=== PATIENT | female | born 1945 | race Caucasian/White ===

== ENCOUNTER 2017-07-06 14:41 | Emergency (ER) | payer MEDICARE, OTHER ==
[2017-07-06] MEDS ORDERED: LIDOCAINE VIS-MYLANTA 30 ML UD PO ONE (15:03)
--- NOTE | 2017-07-06 15:22 | RAD ---
EXAM DESCRIPTION: Chest,2 Views CLINICAL HISTORY: 72-year-old, female, chest pain. COMPARISON: None available. Findings/impression: Frontal and lateral views of the chest. Cardiac silhouette and pulmonary vascularity are within normal limits. Calcific atherosclerosis noted of the aortic arch. Subtle linear opacity within the left lung base, most likely atelectasis. Underlying infiltrate cannot be entirely excluded, although felt much less likely. No pleural effusion. No pneumothorax. Left shoulder arthroplasty. Electronically signed by: Stan Campos MD 07/06/2017 3:21 PM CDT
[2017-07-06 15:31] VITALS: O2SAT 98
[2017-07-06] MEDS ORDERED: SUCRALFATE 1 GM/10 ML 1 GM UD PO ONE (16:27)
--- NOTE | 2017-07-06 18:20 | ED.PDOC ---
History of Present Illness - General Chief Complaint: Chest Pain/VA Stated Complaint: Epigastric/low chest discomfort Time Seen by Provider: 07/06/17 15:01 Source: patient Exam Limitations: no limitations - History of Present Illness Initial Comments: The patient is a 72-year-old female presenting to the emergency room secondary to several hours of intermittent chest discomfort this morning. Chest discomfort is atypical. She has not had this sensation before. She was not doing anything really active when it started. The chest pain last 5-6 seconds when it comes on. It does not seem to be related to position. It starts at the lower sternal edge and proceed centrally upher neck towards the back of her throat. She does get a little bit of nausea with it. It is a tightening sensation. There is nothing that she can do to either start it or stop it. It does not necessarily cause shortness of breath. She has had a history of reflux in the past. No palpitations. No syncope or near syncope. She had been getting approximately 10-15 episodes since it started. She did have several episodes while I was talking with her. There is been nochange on telemetry monitoring. Her oxygen saturations have not changed. She does not become diaphoretic. The GI cocktail given to her did not stop the sensation but did significantly reduce the strength of the sensation immediately. Timing/Duration: 1-3 hours Severity: mild Improving Factors: nothing Worsening Factors: nothing Associated Symptoms: chest pain Allergies/Adverse Reactions: Allergies NO KNOWN ALLERGY Allergy (Verified 07/06/17 17:08) Home Medications: Ambulatory Orders Amlodipine Besylate-Benazepril [Lotrel] 1 cap PO DAILY #0 02/16/13 Calcium Carbonate-Cholecalcife [Calcium + D3 600-200 mg-Unit] 1 tab PO DAILY #0 02/16/13 Carvedilol [Coreg] 6.25 mg PO BID #0 02/16/13 Cholecalciferol [Vitamin D] 2,000 unit PO DAILY #0 02/16/13 Coenzyme Q10 (Ubidecarenone) [Co Q-10] 200 mg PO DAILY #0 02/16/13 Multiple Vitamin [Multi-Vitamin] 1 tab PO DAILY #0 02/16/13 Niacin [Niacin Tr] 1,000 mg PO DAILY #0 02/16/13 Simvastatin [Zocor] 20 mg PO DAILY #0 02/16/13 Famotidine 20 mg PO DAILY #30 tab 07/06/17 Progesterone Micronized [Progesterone] 200 mg PO DAILY 07/06/17 Ropinirole Hydrochloride [Ropinirole ER] 3 mg PO BID 07/06/17 Sucralfate Tab [Carafate Tab] 1 gm PO QID #60 tab 07/06/17 Review of Systems - Review of Systems Constitutional: States: no symptoms reported EENTM: States: no symptoms reported Respiratory: States: no symptoms reported Cardiology: States: chest pain Gastrointestinal/Abdominal: States: no symptoms reported Genitourinary: States: no symptoms reported Musculoskeletal: States: no symptoms reported Skin: States: no symptoms reported Neurological: States: no symptoms reported Endocrine: States: no symptoms reported All other Systems: No Change from Baseline Past Medical History (General) - Patient Medical History Hx Seizures: No Hx Stroke: No Hx Asthma: No Hx of COPD: No Hx Cardiac Disorders: Yes - hypercholesterolemia Hx Congestive Heart Failure: No Hx Pacemaker: No Hx Hypertension: Yes Hx Diabetes: No Hx Cancer: No Hx of HIV: No Hx Hepatitis C: No Hx MRSA: No Surgical History: Hysterectomy, other - Vaccination History Hx Tetanus, Diphtheria Vaccination: Yes - 2012 Hx Influenza Vaccination: Yes - 2015 Hx Pneumococcal Vaccination: Yes - 2007 Immunizations Comment: Prevaner 07/2015; Shingles 04/2014 - Social History Hx Tobacco Use: No Hx Alcohol Use: No Hx Substance Use: No Hx Substance Use Treatment: No Hx Depression: No Hx Physical Abuse: No Hx Emotional Abuse: No - Female History Patient is a Female of Child Bearing Age (10 -59 yrs old): No Family Medical History - Family History Mother Family History: Unknown Living Status: Physical Exam - Physical Exam General Appearance: Alert, Comfortable, No apparent distress Eye Exam: bilateral normal Ears, Nose, Throat: hearing grossly normal, normal ENT inspection, normal pharynx Neck: full range of motion, supple Respiratory: chest non-tender, lungs clear, normal breath sounds, no respiratory distress, no accessory muscle use Cardiovascular/Chest: normal peripheral pulses, regular rate, rhythm, no edema Peripheral Pulses: radial,right: 2+, radial,left: 2+, dorsalis pedis,right: 2+, dorsalis pedis,left: 2+ Gastrointestinal/Abdominal: non tender, soft Rectal Exam: deferred Back Exam: normal inspection, no CVA tenderness Extremity: normal range of motion, non-tender, normal inspection, no pedal edema , normal capillary refill Neurologic: skin drier II-XII nml as tested, no motor/sensory deficits, alert, normal mood/affect, oriented x 3 Skin Exam: normal color Comments: Vital Signs - 24 hr 07/06/17 07/06/17 07/06/17 14:48 15:30 16:28 Temperature 97.6 F Pulse Rate [ 73 73 63 apical] Respiratory 16 18 18 Rate Blood Pressure 157/96 134/77 154/66 [right brachial ] O2 Sat by Pulse 98 98 98 Oximetry Progress - Progress Progress: 07/06/17 18:21 the patient is a 72-year-old female presenting to the emergency room with atypical chest pain. 2 sets of cardiac enzymes are negative. The patient' s symptoms and response to the GI cocktail are consistent with esophageal motility disorder. We are going to treat the patient with acid reducing medications with the intention of reducing any esophageal irritation that may be triggering this. The patient was placed on Carafate for 2 weeks along with Pepcid for the next month. dietary precautions have been given to the patient. She has agreed to comply. ER warnings were given. She should follow-up with her primary care doctor next week for reevaluation. - Results/Orders Results/Orders: 07/06/17 15:02 Telemetry .CONTINUOUS 07/06/17 15:15 EKG STAT showed normal sinus rhythm at a rate of 81 bpm. Normal axis. Normal R -wave progression. No acute ST segment changes concerning for ischemia. Normal QT interval. Laboratory Results - last 24 hr 07/06/17 07/06/17 07/06/17 14:20 14:20 14:20 WBC 10.3 RBC 4.67 Hgb 11.8 L Hct 36.9 MCV 79.2 L MCH 25.2 L MCHC 31.9 L RDW 15.6 H Plt Count 359 MPV 7.7 Absolute Neuts (auto) 6.70 Absolute Lymphs (auto) 1.90 Absolute Monos (auto) 1.10 H Absolute Eos (auto) 0.40 Absolute Basos (auto) 0.10 Neutrophils % 65.2 Lymphocytes % 18.8 L Monocytes % 11.1 H Eosinophils % 3.8 Basophils % 1.1 PT 10.8 INR 0.960 PTT (SP) 29.6 D-Dimer, Quantitative 297 H* Sodium 139 Potassium 3.7 Chloride 104 Carbon Dioxide 28 Anion Gap 10.7 L BUN 17 Creatinine 0.72 BUN/Creatinine Ratio 23.6 H Random Glucose 93 Serum Osmolality 278.8 Calcium 10.2 Magnesium 2.3 Total Bilirubin 0.6 AST 19 ALT 15 Alkaline Phosphatase 57 Creatine Kinase 94 CK-MB (CK-2) 2.3 CK-MB (CK-2) % Not Reportable Troponin I < 0.02 B-Natriuretic Peptide 103.0 H Serum Total Protein 7.6 Albumin 4.2 Globulin 3.4 Albumin/Globulin Ratio 1.2 TSH 1.89 07/06/17 17:35 WBC RBC Hgb Hct MCV MCH MCHC RDW Plt Count MPV Absolute Neuts (auto) Absolute Lymphs (auto) Absolute Monos (auto) Absolute Eos (auto) Absolute Basos (auto) Neutrophils % Lymphocytes % Monocytes % Eosinophils % Basophils % PT INR PTT (SP) D-Dimer, Quantitative Sodium Potassium Chloride Carbon Dioxide Anion Gap BUN Creatinine BUN/Creatinine Ratio Random Glucose Serum Osmolality Calcium Magnesium Total Bilirubin AST ALT Alkaline Phosphatase Creatine Kinase 85 CK-MB (CK-2) 2.1 CK-MB (CK-2) % Not Reportable Troponin I < 0.02 B-Natriuretic Peptide Serum Total Protein Albumin Globulin Albumin/Globulin Ratio TSH chest x-ray shows no acute pathology. Departure - Departure Clinical Impression: Chest pain, atypical Disposition: Discharge to Home or Self Care Departure Forms: ED Discharge - Pt. Copy, Patient Portal Self Enrollment Instructions: DI for Esophagitis, DI for Atypical Chest Pain Diet: bland diet Activity: increase activity as tolerated Referrals: Isis Locke MD [Primary Care Provider] - 1-2 Weeks Prescriptions: Famotidine 20 mg PO DAILY #30 tab Sucralfate Tab [Carafate Tab] 1 gm PO QID #60 tab Home Medications: Ambulatory Orders Amlodipine Besylate-Benazepril [Lotrel] 1 cap PO DAILY #0 02/16/13 Calcium Carbonate-Cholecalcife [Calcium + D3 600-200 mg-Unit] 1 tab PO DAILY #0 02/16/13 Carvedilol [Coreg] 6.25 mg PO BID #0 02/16/13 Cholecalciferol [Vitamin D] 2,000 unit PO DAILY #0 02/16/13 Coenzyme Q10 (Ubidecarenone) [Co Q-10] 200 mg PO DAILY #0 02/16/13 Multiple Vitamin [Multi-Vitamin] 1 tab PO DAILY #0 02/16/13 Niacin [Niacin Tr] 1,000 mg PO DAILY #0 02/16/13 Simvastatin [Zocor] 20 mg PO DAILY #0 02/16/13 Famotidine 20 mg PO DAILY #30 tab 07/06/17 Progesterone Micronized [Progesterone] 200 mg PO DAILY 07/06/17 Ropinirole Hydrochloride [Ropinirole ER] 3 mg PO BID 07/06/17 Sucralfate Tab [Carafate Tab] 1 gm PO QID #60 tab 07/06/17 Additional Instructions: the patient is a 72-year-old female presenting to the emergency room with atypical chest pain. 2 sets of cardiac enzymes are negative. The patient' s symptoms and response to the GI cocktail are consistent with esophageal motility disorder. We are going to treat the patient with acid reducing medications with the intention of reducing any esophageal irritation that may be triggering this. The patient was placed on Carafate for 2 weeks along with Pepcid for the next month. dietary precautions have been given to the patient. She has agreed to comply. ER warnings were given. She should follow-up with her primary care doctor next week for reevaluation.
[2017-07-06 18:34] VITALS: BP 140/88; TEMP 97.9
== END 2017-07-06 18:30 | disposition home or self-care (01) ==
LOC: ER 14:41
DX: R07.89 Other chest pain (principal); E78.00 Pure hypercholesterolemia, unspecified; I10 Essential (primary) hypertension; Z79.899 Other long term (current) drug therapy

== ENCOUNTER → 2017-07-31 | Outpatient (CLI) | payer MEDICARE, OTHER ==
--- NOTE | 2017-07-31 09:35 | RAD ---
EXAM DESCRIPTION: Ankle,Left 3 Views CLINICAL HISTORY: 72 years Female, PAIN COMPARISON: None. FINDINGS: 3 views of the left ankle show lateral soft tissue swelling. There is a small bone fragment along the lateral aspect of the ankle suspicious for a small avulsion type fracture likely arising from the calcaneus. No additional fracture or malalignment is seen. The tibiotalar joint space and talar dome are well-maintained. The base of the fifth metatarsal is intact. There is a small plantar calcaneal enthesophyte. IMPRESSION: Small avulsion fracture arising from the lateral aspect of the calcaneus with overlying soft tissue swelling. Otherwise unremarkable exam. Electronically signed by: Pantera Najera MD 07/31/2017 9:34 AM [facility]
== END | disposition home or self-care (01) ==
LOC: RAD 08:44
PROVIDERS: ATTEND Orthopaedic Surgery
DX: M25.572 Pain in left ankle and joints of left foot (principal)

== ENCOUNTER → 2017-10-09 | Outpatient (CLI) | payer MEDICARE, OTHER ==
--- NOTE | 2017-10-09 15:32 | CT ---
EXAM DESCRIPTION: Abdomen/Pelvis w/Contrast: CT. CLINICAL HISTORY: INTESTINAL OBSTRUCTION COMPARISON: None. TECHNIQUE: Spiral-axial scans at 5.0 mm intervals through the abdomen and pelvis, after nonionic IV contrast. No oral contrast. Axial 2.5 mm reconstructions. Coronal and sagittal 2.0 mm reconstructions. Delayed scans, liver through the pelvis. Axial-spiral 5mm. No adverse reactions. Total Exam DLP: 1178.69 mGy-cm. This exam was performed according to our departmental dose-optimization program which includes automated exposure control, adjustment of the mA and/or kV according to patient size and/or use of iterative reconstruction technique; to reduce radiation dose to as low as reasonably achievable (ALARA). FINDINGS: Lung bases and pleura: Minimal scarring in the left base. Liver, Stomach, Spleen, Adrenal Glands: Calcification in the inferior right liver. Subcapsular cyst lateral right upper lobe. Small calcifications in the spleen.. Pancreas, Gallbladder, Ducts: Minimally dense small stones or sludge in the neck of the gallbladder Kidneys and Ureters: Cyst in the superior lateral cortex of the left kidney small noncalcified septation inferiorly. Otherwise unremarkable. Right kidney and ureter negative. Mesentery: Negative. No free air or free fluid. Aorta: Atherosclerotic calcification more dense inferiorly with narrowing of the lumen. Calcification proximal common iliac vessels. Calcification of the ostia of the major vessels originating from the aorta. Small Bowel: Minimal fluid and gas with no distention. Fecalization of the distal ileum. Terminal Ileum/Cecum: Unremarkable. Normal caliber of the appendix. Normal surrounding fat. Colon: Diverticula in the sigmoid colon with minimal redundancy. No complications. Pelvic Organs: No fluid in the cul-de-sac. Vaginal cuff is unremarkable. No soft tissue masses in the pelvic cavity. Spine and Bony Pelvis: Spondylosis L5-S1 with degenerated bulging disc. Spondylosis space loss and endplate changes at L1-L2. Normal bone density. Abdominal Wall/Back Soft Tissues: Edema in the subcutaneous tissues around the vulva predominantly on the right extending through the pubic symphysis. No definite fluid collection. IMPRESSION: 1. Small stones or sludge in the dependent portion of the gallbladder. No wall thickening. Consider right upper quadrant abdominal ultrasound if clinically indicated. 2. Small left renal cortical cyst with thin noncalcified septa, nonenhancing. No further imaging needed. 3. Diverticulosis sigmoid colon with no evidence of complications. No bowel obstruction. 4. No enlarged abdominal organs. No free air. No ascites or fluid in the cul-de-sac. Diffuse atherosclerotic calcification of the abdominal aorta with luminal narrowing distally. 5. Inflammatory process in the right vulva but no definite abscess. This extends superiorly to the level of the anterior pubic symphysis Electronically signed by: Jonathan Iniguez MD 10/09/2017 3:31 PM [employer]
== END | disposition home or self-care (01) ==
LOC: CT 09:00
PROVIDERS: ATTEND Internal Medicine Gastroenterology
DX: R19.4 Change in bowel habit (principal)

== ENCOUNTER → 2017-10-31 | Outpatient (CLI) | payer MEDICARE, OTHER | LOC: SL 10:30 | PROVIDERS: ATTEND Family Medicine | DX: G47.10 Hypersomnia, unspecified (principal); G47.00 Insomnia, unspecified; R06.83 Snoring ==

== ENCOUNTER → 2017-12-04 | Outpatient (CLI) | payer MEDICARE, OTHER | LOC: SL 23:22 | PROVIDERS: ATTEND Family Medicine | DX: G47.10 Hypersomnia, unspecified (principal); G47.00 Insomnia, unspecified; R06.83 Snoring ==

== ENCOUNTER → 2017-12-26 | Outpatient (CLI) | payer MEDICARE, OTHER ==
--- NOTE | 2017-12-26 09:56 | RAD ---
EXAM DESCRIPTION: Shoulder,Right 2 or More Views CLINICAL HISTORY: SHOULDER PAIN COMPARISON: None Available. TECHNIQUE: 4 views of the right shoulder. FINDINGS: There is adequate internal and external rotation. Normal alignment on transscapular Y view and transaxillary view There is no fracture or dislocation. Mild degenerative spurring at the AC joint. Acromiohumeral distance measures 1.1 cm which is normal.There are no significant degenerative changes observed. No focal bone lesion. IMPRESSION: Negative for fracture or dislocation. Electronically signed by: Thomas Tinsley MD 12/26/2017 9:54 AM CDT
== END | disposition home or self-care (01) ==
LOC: RAD 07:41
PROVIDERS: ATTEND Orthopaedic Surgery
DX: M25.511 Pain in right shoulder (principal)

== ENCOUNTER → 2017-12-28 | Outpatient (CLI) | payer MEDICARE, OTHER ==
--- NOTE | 2017-12-28 12:23 | MRI ---
MRI right shoulder without contrast INDICATION: Shoulder pain limited range of motion rotator cuff syndrome TECHNIQUE: Noncontrast MR imaging right shoulder standard protocol FINDINGS: Moderate to severe hypertrophic AC joint osteoarthrosis. There is an effectively full-thickness tear of the insertional supraspinatus. Retraction measures approximately 9 mm. Fairly severe subacromial and subdeltoid bursitis. No advanced glenohumeral arthrosis. There is interstitial delamination into the infraspinatus. Grade 1 fatty streaking of the rotator cuff muscle bellies diffusely. No end-stage asymmetric atrophy. Mild tendinopathy subscapularis. Possible small focus of hydroxyapatite deposition on axial series 301 image 9 lateral margin bicipital groove but no active inflammation. IMPRESSION: Full-thickness mildly retracted tear supraspinatus tendon with interstitial delamination into the infraspinatus Severe subacromial and subdeltoid bursitis Advanced AC joint osteoarthrosis Generalized grade 1 fatty atrophy of the rotator cuff muscle bellies Electronically signed by: Cm Suazo MD 12/28/2017 12:22 PM CDT
== END | disposition home or self-care (01) ==
LOC: MRI 10:00
PROVIDERS: ATTEND Orthopaedic Surgery
DX: M75.101 Unspecified rotator cuff tear or rupture of right shoulder, not specified as traumatic (principal)

== ENCOUNTER 2018-03-30 22:27 | Emergency (ER) | payer MEDICARE, OTHER ==
--- NOTE | 2018-03-31 00:12 | ED.PDOC ---
History of Present Illness - General Chief Complaint: Abdominal Pain Stated Complaint: Abdominal pain Time Seen by Provider: 03/30/18 23:25 Information Source: patient Exam Limitations: no limitations - History of Present Illness Initial Comments: Azra Bunch 73 y/o female stated that she had on and off achy pain on her abdomen for the last 1 1/2 years and had seen GI specialist for this problem stated that she might have intermittent bowel obstruction.Had numerous work up done with colonoscopy,EGD,gi vdeocam and unable to pinpoint the cause of her chronic abdominal pains.But this afternoon the intensity got worse getting more frequent no nausea/vomiting,able to eat lunch then afterwards had onset of symptoms after eating had 2 bowel movements today am and at 1730 H. Abdominal Pain Onset Location: other - mid abdomen Pain Radiation: no radiation Quality: aching Timing/Duration: 7-24 hours Improving Factors: nothing Worsening Factors: eating Associated Symptoms: denies symptoms Review of Systems - Review of Systems Constitutional: States: no symptoms reported EENTM: States: no symptoms reported Respiratory: States: no symptoms reported Cardiology: States: no symptoms reported Gastrointestinal/Abdominal: States: see HPI Genitourinary: States: no symptoms reported Musculoskeletal: States: no symptoms reported Skin: States: no symptoms reported Neurological: States: no symptoms reported All other Systems: Reviewed and Negative, No Change from Baseline Past Medical History (General) - Patient Medical History Hx Seizures: No Hx Stroke: No Hx Asthma: No Hx of COPD: No Hx Cardiac Disorders: Yes - hypercholesterolemia, A-fib Hx Congestive Heart Failure: No Hx Pacemaker: No Hx Hypertension: Yes Hx Diabetes: No Hx Cancer: No Hx of HIV: No Hx Hepatitis C: No Hx MRSA: No Surgical History: other - hysterectomy - Vaccination History Hx Tetanus, Diphtheria Vaccination: Yes Hx Influenza Vaccination: Yes Hx Pneumococcal Vaccination: Yes Immunizations Up to Date: Yes - Social History Hx Tobacco Use: No Hx Alcohol Use: No Hx Substance Use: No Hx Substance Use Treatment: No Hx Depression: No Hx Physical Abuse: No Hx Emotional Abuse: No - Female History Patient : No Family Medical History - Family History Mother Family History: Unknown Living Status: Hx Cardiac Disease: Yes - parents mi-in their late 50's Hx Family Cancer: Yes - ovarian/colon-half sister Physical Exam - Physical Exam General Appearance: Alert, Comfortable, No apparent distress Eyes, Ears, Nose, Throat Exam: PERRL/EOMI, normal ENT inspection, pharynx normal Neck: non-tender, full range of motion, supple, normal inspection Respiratory: chest non-tender, lungs clear, normal breath sounds, no respiratory distress Cardiovascular/Chest: normal peripheral pulses, irregularly irregular - HR-92 Peripheral Pulses: No deficit Gastrointestinal/Abdominal: soft, no organomegaly, tenderness - mid abdomen; positive direct tenderness,no rebound Back Exam: no CVA tenderness, no vertebral tenderness Extremity: non-tender, no pedal edema, no calf tenderness Skin Exam: normal color, warm/dry Lymphatic: no adenopathy Progress - Progress Progress: 03/31/18 00:27 Vital Signs 03/30/18 23:19 Temperature 98.5 F Pulse Rate [ 88 left radial] Respiratory 20 Rate Blood Pressure 165/76 [Left Arm] O2 Sat by Pulse 97 Oximetry - Results/Orders Results/Orders: 03/30/18 23:25 IV Care:Saline Lock per Protoc QSHIFT 03/31/18 00:30 Hold Metformin x 48Hrs [id number] Laboratory Results - last 24 hr 03/30/18 03/30/18 03/30/18 23:15 23:15 23:30 WBC 11.7 H RBC 4.95 Hgb 14.9 Hct 44.8 MCV 90.5 MCH 30.1 MCHC 33.2 RDW 13.9 Plt Count 273 MPV 7.8 Absolute Neuts (auto) 9.50 H Absolute Lymphs (auto) 1.00 Absolute Monos (auto) 0.90 H Absolute Eos (auto) 0.30 Absolute Basos (auto) 0.00 Neutrophils % 80.8 H Lymphocytes % 8.1 L Monocytes % 8.1 Eosinophils % 2.6 Basophils % 0.4 Sodium 138 Potassium 3.7 Chloride 103 Carbon Dioxide 26 Anion Gap 12.7 BUN 20 H Creatinine 0.91 BUN/Creatinine Ratio 22.0 H Random Glucose 120 H Serum Osmolality 279.5 Lactic Acid Calcium 9.6 Total Bilirubin 1.0 AST 24 ALT 21 Alkaline Phosphatase 60 Serum Total Protein 7.0 Albumin 4.3 Globulin 2.7 Albumin/Globulin Ratio 1.6 Lipase 19 L Urine Color Urine Appearance Urine pH Ur Specific [place] Urine Protein Urine Glucose (UA) Urine Ketones Urine Blood Urine Nitrite Urine Bilirubin Urine Urobilinogen Ur Leukocyte Esterase Urine RBC Urine WBC Ur Epithelial Cells Urine Bacteria Urine Mucus 07/06/18 07/07/18 23:30 00:39 WBC RBC Hgb Hct MCV MCH MCHC RDW Plt Count MPV Absolute Neuts (auto) Absolute Lymphs (auto) Absolute Monos (auto) Absolute Eos (auto) Absolute Basos (auto) Neutrophils % Lymphocytes % Monocytes % Eosinophils % Basophils % Sodium Potassium Chloride Carbon Dioxide Anion Gap BUN Creatinine BUN/Creatinine Ratio Random Glucose Serum Osmolality Lactic Acid 1.7 Calcium Total Bilirubin AST ALT Alkaline Phosphatase Serum Total Protein Albumin Globulin Albumin/Globulin Ratio Lipase Urine Color Yellow Urine Appearance Clear Urine pH 6.5 Ur Specific [place] 1.025 Urine Protein Negative Urine Glucose (UA) Negative Urine Ketones Negative Urine Blood Negative Urine Nitrite Negative Urine Bilirubin Negative Urine Urobilinogen 0.2 Ur Leukocyte Esterase Negative Urine RBC 0 Urine WBC 0-1 Ur Epithelial Cells 0-1 Urine Bacteria 1+ Urine Mucus Trace - EKG/XRAY/CT CT Ordered: Yes - abd/pelvis-small bowel obstruction transition mid abd. Departure - Departure Clinical Impression: Small bowel obstruction due to adhesions Abdominal pain Qualifiers: Abdominal location: unspecified location Qualified Code(s): R10.9 - Unspecified abdominal pain Time of Disposition: 03:28 Disposition: Transfer to Hospital Departure Forms: Patient Portal Self Enrollment Referrals: Aurelio Voss MD [Primary Care Provider] - 1-2 Weeks Home Medications: Ambulatory Orders Amlodipine Besylate-Benazepril [Lotrel] 1 cap PO DAILY #0 02/16/13 Calcium Carbonate-Cholecalcife [Calcium + D3 600-200 mg-Unit] 1 tab PO DAILY #0 02/16/13 Carvedilol [Coreg] 6.25 mg PO BID #0 02/16/13 Cholecalciferol [Vitamin D] 2,000 unit PO DAILY #0 02/16/13 Coenzyme Q10 (Ubidecarenone) [Co Q-10] 200 mg PO DAILY #0 02/16/13 Multiple Vitamin [Multi-Vitamin] 1 tab PO DAILY #0 02/16/13 Niacin [Niacin Tr] 1,000 mg PO DAILY #0 02/16/13 Simvastatin [Zocor] 20 mg PO DAILY #0 02/16/13 Famotidine 20 mg PO DAILY #30 tab 07/06/17 Progesterone Micronized [Progesterone] 200 mg PO DAILY 07/06/17 Ropinirole Hydrochloride [Ropinirole ER] 3 mg PO BID 07/06/17 Sucralfate Tab [Carafate Tab] 1 gm PO QID #60 tab 07/06/17 Transfer to Outside Facility - Transfer Information Accepting Provider:: -Hospitalist Accepting Facility: [facility] Reason for Transfer: required specialist not available
[2018-03-31] MEDS ORDERED: MORPHINE SULFATE INJ 10 MG/ML VIAL IV ONE ×2 (00:13→02:37)
[2018-03-31] MEDS ORDERED: SODIUM CHLORIDE 0.9% 500ML 500 ML IVS ONE (00:13)
[2018-03-31] MEDS ORDERED: PROMETHAZINE HCL INJ 25 MG/ML VIAL IM ONE (00:13)
--- NOTE | 2018-03-31 01:14 | CT ---
CT ABDOMEN PELVIS WITH IV CONTRAST Exam date: March 31, 2018 Comparison: CT abdomen pelvis October 09, 2017 Indication: Abdominal pain Technique: Multiple helical axial images were obtained through the abdomen and pelvis using intravenous contrast. Sagittal and coronal reformatted images are reviewed as well. All CT scans at this facility use dose modulation, iterative reconstruction, and/or weight-based dosing when appropriate to reduce radiation dose to as low as reasonably achievable. Findings: Lung bases: [Appear unremarkable]. Liver: [A few subcentimeter hypodensities in the liver are again demonstrated too small to characterize but unchanged.] Gallbladder/biliary: [Appears unremarkable] Pancreas: [Unremarkable. No evidence of ductal enlargement.] Spleen: Appears unremarkable. No splenomegaly. Adrenals: Unremarkable. Kidneys and ureters: There is a 1.3 cm cyst in the midpole of the left kidney. [No evidence of hydronephrosis. Normal enhancement.] Bladder: Unremarkable. Pelvic organs: Post hysterectomy changes are present. Bowel: Several dilated small bowel loops are demonstrated in the lower midabdomen with air-fluid levels. There is an abrupt transition between dilated and decompressed small bowel in the lower mid abdomen (series 2, image 63) with decompressed small bowel distally compatible with small bowel obstruction. There is mild stranding of mesenteric fat near the dilated small bowel loops. Colonic diverticula are present. No obvious bowel wall thickening. Appendix appears unremarkable. Vasculature: Aortoiliac atherosclerosis is present. Peritoneum: No free air. No significant free fluid. Lymph nodes: Unremarkable. Soft tissues: Normal Bones: Degenerative changes of the lumbar spine are present. Impression: Findings compatible with small bowel obstruction with a transition point in the lower mid abdomen. Electronically signed by: Ra Mahan MD 03/31/2018 1:13 AM CDT
[2018-03-31] MEDS ORDERED: SODIUM CHLORIDE 0.9% 1000ML 1,000 ML IVS PRN (02:52)
--- NOTE | 2018-03-31 03:23 | RAD ---
EXAM DESCRIPTION: Abdomen 1 View (accession [id number]), Chest,1 View (accession [id number]) CLINICAL HISTORY: 73 years Female, post Ngt insertion COMPARISON: Chest two views July 06, 2017 FINDINGS: No pulmonary consolidation. No pneumothorax. No significant pleural effusion. Cardiomediastinal silhouette is unremarkable. Esophogastric tube is present with its tip at the gastroesophageal junction. Bowel gas pattern appears nonspecific with paucity of gas. Contrast is present in the bilateral renal collecting systems from a prior study. Left shoulder arthroplasty changes are noted. IMPRESSION: 1. No acute findings within the chest. 2. Esophogastric tube tip at the gastroesophageal junction. Electronically signed by: Ra Mahan MD 03/31/2018 3:22 AM CDT
--- NOTE | 2018-03-31 03:23 | RAD ---
EXAM DESCRIPTION: Abdomen 1 View (accession [id number]), Chest,1 View (accession [id number]) CLINICAL HISTORY: 73 years Female, post Ngt insertion COMPARISON: Chest two views July 06, 2017 FINDINGS: No pulmonary consolidation. No pneumothorax. No significant pleural effusion. Cardiomediastinal silhouette is unremarkable. Esophogastric tube is present with its tip at the gastroesophageal junction. Bowel gas pattern appears nonspecific with paucity of gas. Contrast is present in the bilateral renal collecting systems from a prior study. Left shoulder arthroplasty changes are noted. IMPRESSION: 1. No acute findings within the chest. 2. Esophogastric tube tip at the gastroesophageal junction. Electronically signed by: Ra Mahan MD 03/31/2018 3:22 AM CDT
[2018-03-31 03:38] VITALS: BP 141/74; TEMP 97.7; O2SAT 98
== END 2018-03-31 03:55 | disposition short-term general hospital (02) ==
LOC: ER 22:27
DX: K56.50 Intestinal adhesions [bands], unspecified as to partial versus complete obstruction (principal); I48.91 Unspecified atrial fibrillation; I10 Essential (primary) hypertension; E78.00 Pure hypercholesterolemia, unspecified; Z79.899 Other long term (current) drug therapy
CPT/HCPCS: 36415; 71045; 74018; 74177; 80053; 81001; 83605; 83690; 85025; J2270; J2550; J7030; J7040

== ENCOUNTER → 2018-04-11 | Outpatient (CLI) | payer MEDICARE, OTHER ==
--- NOTE | 2018-04-11 16:21 | RAD ---
EXAM DESCRIPTION: Knee,Right 2 or More Views CLINICAL HISTORY: 73 years, Female, PAIN IN RIGHT KNEE COMPARISON: None TECHNIQUE: Three views of the right knee FINDINGS: No fracture or dislocation. Bones appear normally mineralized with normal trabecular pattern. Narrowed appearance of medial and lateral compartments on frontal view with prominent medial and lateral joint line spurring and spurring of tibial spines. Lateral view shows normal position of the patella. Prominent posterior patellar spurring is seen inferiorly. Small to moderate suprapatellar knee joint effusion is present and there is edema at the lower pole of the patella.. Normal contour of quadriceps and patellar tendons. No abnormal patellar tilt or subluxation on patellar sunrise view. Mild posterolateral patellar spurring with medial femoral trochlear spurring. IMPRESSION: Degenerative changes as described. Electronically signed by: Thomas Tinsley MD 04/11/2018 4:20 PM CDT
--- NOTE | 2018-04-11 16:22 | RAD ---
EXAM DESCRIPTION: Pelvis CLINICAL HISTORY: 73 years Female, PAIN IN RIGHT HIP COMPARISON: None. FINDINGS: No pelvic fracture. No hip dislocation. Mild enthesopathy at the left greater trochanter. Question mild myositis ossificans beyond the left greater trochanter distally. IMPRESSION: Negative for fracture or dislocation. Electronically signed by: Thomas Tinsley MD 04/11/2018 4:21 PM CDT
== END ==
LOC: RAD 07:00
PROVIDERS: ATTEND Orthopaedic Surgery
DX: M25.561 Pain in right knee (principal); M25.551 Pain in right hip

== ENCOUNTER → 2018-04-16 | Outpatient (CLI) | payer MEDICARE, OTHER | LOC: GMAM 16:22 | PROVIDERS: ATTEND Family Medicine | DX: D50.8 Other iron deficiency anemias (principal) ==

== ENCOUNTER → 2018-09-11 | Outpatient (CLI) | payer MEDICARE, OTHER | LOC: GMAM 12:33 | PROVIDERS: ATTEND Family Medicine | DX: M25.50 Pain in unspecified joint (principal) ==

== ENCOUNTER 2018-11-10 14:50 | Emergency (ER) | payer MEDICARE, OTHER ==
[2018-11-10 15:16] VITALS: O2SAT 96
--- NOTE | 2018-11-10 15:20 | ED.PDOC ---
History of Present Illness - General Chief Complaint: General Stated Complaint: Right knee pain Time Seen by Provider: 11/10/18 15:20 Source: patient Exam Limitations: no limitations - History of Present Illness Initial Comments: Azra Mckeon 23 y/o female stated that he had sharp right knee pain which started this AM aggravated by walking and climbing.Has history of previous right knee pain in the past and had seen orthopedist Dr. Porter in March 2018 but mentioned no surgical intervention indicated at that time.Denies history of remote or recent injury to right knee.No fever,no sob,no recent surgeries. Timing/Duration: 4-6 hours Severity: moderate Improving Factors: nothing, rest Worsening Factors: movement Associated Symptoms: denies symptoms Allergies/Adverse Reactions: Allergies NO KNOWN ALLERGY Allergy (Verified 11/10/18 15:20) Home Medications: Ambulatory Orders Calcium Carbonate-Cholecalcife [Calcium + D3 600-200 mg-Unit] 1 tab PO DAILY #0 02/16/13 Carvedilol [Coreg] 6.25 mg PO BID #0 02/16/13 Cholecalciferol [Vitamin D] 2,000 unit PO DAILY #0 02/16/13 Coenzyme Q10 (Ubidecarenone) [Co Q-10] 200 mg PO DAILY #0 02/16/13 Multiple Vitamin [Multi-Vitamin] 1 tab PO DAILY #0 02/16/13 Simvastatin [Zocor] 20 mg PO DAILY #0 02/16/13 Progesterone Micronized [Progesterone] 200 mg PO DAILY 07/06/17 Ropinirole Hydrochloride [Ropinirole ER] 1 mg PO BID 07/06/17 Acetamin W/Cod #3 Tab [Tylenol w/CODEINE #3] 1 ea PO Q6HRS PRN #30 tab 11/10/18 Albuterol Sulfate [Ventolin Hfa] 108 mcg IN PRN PRN 11/10/18 Apixaban [Eliquis] 5 mg PO DAILY 11/10/18 Fluticasone Propionate (Nasal) [Flonase] 50 mcg ALEX PRN PRN 11/10/18 Furosemide [Lasix] 20 mg PO PRN PRN 11/10/18 Magnesium Oxide (mg Supplement [Magnesium Oxide] 400 mg PO DAILY 11/10/18 Potassium Chloride [Klor-Con Sprinkle] 8 meq PO PRN PRN 11/10/18 Sumatriptan Succinate [Imitrex] 100 mg PO PRN PRN 11/10/18 Valsartan 160 mg PO DAILY 11/10/18 Review of Systems - Review of Systems Constitutional: States: no symptoms reported EENTM: States: no symptoms reported Respiratory: States: no symptoms reported Gastrointestinal/Abdominal: States: no symptoms reported Genitourinary: States: no symptoms reported Musculoskeletal: States: see HPI All other Systems: Reviewed and Negative, No Change from Baseline Past Medical History (General) - Patient Medical History Hx Seizures: No Hx Stroke: No Hx Asthma: No Hx of COPD: No Hx Cardiac Disorders: Yes - hx of A-fib Hx Congestive Heart Failure: No Hx Pacemaker: No Hx Hypertension: Yes Hx Diabetes: No Hx Cancer: Yes - lymphoma 2008 (remission) Hx of HIV: No Hx Hepatitis C: No Hx MRSA: No Surgical History: other - Hysterectomy,left knee,left shoulder,CTS,finger - Vaccination History Hx Tetanus, Diphtheria Vaccination: No Hx Influenza Vaccination: Yes Hx Pneumococcal Vaccination: Yes Immunizations Up to Date: Yes - Social History Hx Tobacco Use: Yes Hx Alcohol Use: No Hx Substance Use: No Hx Substance Use Treatment: No Hx Depression: No Hx Physical Abuse: No Hx Emotional Abuse: No - Female History Patient is a Female of Child Bearing Age (10 -59 yrs old): No Patient : No Family Medical History - Family History Mother Family History: Unknown Living Status: Hx Cardiac Disease: Yes - parents mi-in their late 50's Hx Family Cancer: Yes - ovarian/colon-half sister Physical Exam - Physical Exam General Appearance: Alert, Comfortable, No apparent distress Eye Exam: bilateral normal Ears, Nose, Throat: hearing grossly normal, normal ENT inspection, normal pharynx Neck: supple, normal inspection Respiratory: chest non-tender, lungs clear, normal breath sounds Cardiovascular/Chest: normal peripheral pulses, regular rate, rhythm, no murmur Peripheral Pulses: radial,right: 2+, radial,left: 2+ Gastrointestinal/Abdominal: non tender, soft, no organomegaly Back Exam: no CVA tenderness, no vertebral tenderness Extremity: no pedal edema, no calf tenderness, other - rom slightly painful on flexion right knee,no swelling,no erythema Progress - Progress Progress: 11/10/18 15:44 Vital Signs - 8 hr 11/10/18 15:09 Temperature 97.6 F Pulse Rate [ 87 Left Radial] Respiratory 16 Rate Blood Pressure 179/83 [Left Arm] O2 Sat by Pulse 96 Oximetry - Results/Orders Results/Orders: Laboratory Results - last 24 hr 11/10/18 15:55 Uric Acid 6.7 Discuss test result ordered with patient wants to use her cane declined knee immobilizer.She will call up Dr. Porter-orthopedist 12 Nov 2018. Departure - Departure Clinical Impression: Right knee pain Qualifiers: Chronicity: acute Qualified Code(s): M25.561 - Pain in right knee Degenerative joint disease of knee, right Qualifiers: Osteoarthritis type: unspecified Qualified Code(s): M17.11 - Unilateral primary osteoarthritis, right knee Time of Disposition: 16:20 Disposition: Discharge to Home or Self Care Condition: Fair Departure Forms: ED Discharge - Pt. Copy, Patient Portal Self Enrollment Instructions: Knee Pain (DC), Knee Pain, Osteoarthritis (DC) Referrals: Aurelio Voss MD [Primary Care Provider] - 1-2 Weeks Prescriptions: Acetamin W/Cod #3 Tab [Tylenol w/CODEINE #3] 1 ea PO Q6HRS PRN #30 tab PRN Reason: Pain Home Medications: Ambulatory Orders Calcium Carbonate-Cholecalcife [Calcium + D3 600-200 mg-Unit] 1 tab PO DAILY #0 02/16/13 Carvedilol [Coreg] 6.25 mg PO BID #0 02/16/13 Cholecalciferol [Vitamin D] 2,000 unit PO DAILY #0 02/16/13 Coenzyme Q10 (Ubidecarenone) [Co Q-10] 200 mg PO DAILY #0 02/16/13 Multiple Vitamin [Multi-Vitamin] 1 tab PO DAILY #0 02/16/13 Simvastatin [Zocor] 20 mg PO DAILY #0 02/16/13 Progesterone Micronized [Progesterone] 200 mg PO DAILY 07/06/17 Ropinirole Hydrochloride [Ropinirole ER] 1 mg PO BID 07/06/17 Acetamin W/Cod #3 Tab [Tylenol w/CODEINE #3] 1 ea PO Q6HRS PRN #30 tab 11/10/18 Albuterol Sulfate [Ventolin Hfa] 108 mcg IN PRN PRN 11/10/18 Apixaban [Eliquis] 5 mg PO DAILY 11/10/18 Fluticasone Propionate (Nasal) [Flonase] 50 mcg ALEX PRN PRN 11/10/18 Furosemide [Lasix] 20 mg PO PRN PRN 11/10/18 Magnesium Oxide (mg Supplement [Magnesium Oxide] 400 mg PO DAILY 11/10/18 Potassium Chloride [Klor-Con Sprinkle] 8 meq PO PRN PRN 11/10/18 Sumatriptan Succinate [Imitrex] 100 mg PO PRN PRN 11/10/18 Valsartan 160 mg PO DAILY 11/10/18 Additional Instructions: Follow up with 12 Nov 2018;Return to ER as needed;Continue with all home medications
[2018-11-10] MEDS ORDERED: HYDROcodone 7.5MG/APAP 325MG 1 EA TAB PO ONE (15:50)
--- NOTE | 2018-11-10 16:02 | RAD ---
EXAM: Knee,Right 2 or More Views CLINICAL INDICATION: Right knee pain COMPARISON: 04/11/2018 FINDINGS: Two views of the right knee reveal no evidence of a fracture. There is no knee joint effusion. Mild degenerative changes are noted, manifested by joint space narrowing, subchondral sclerosis and/or subchondral cyst formation, and marginal osteophytes, most severe in the medial and patellofemoral compartment. The osseous structures otherwise appear intact and unremarkable. IMPRESSION: Mild degenerative joint disease of the right knee. Electronically signed by: Johann Friedman MD 11/10/2018 4:00 PM [facility]
--- NOTE | 2018-11-10 16:03 | RAD ---
EXAM DESCRIPTION: Hip,Right 2 Views CLINICAL HISTORY: 73 years Female pain COMPARISON: None TECHNIQUE: AP and frog leg views of the right hip are obtained. FINDINGS: OSSEOUS: There is no evidence of acute fracture or osteolytic/osteoblastic lesions. No evidence of subluxation or dislocation. The joint spaces are preserved. Right acetabular marginal osteophytosis suggests mild primary osteoarthritis. However the hip joints appear largely preserved. There is no evidence of marginal erosive changes to suggest an inflammatory arthritis. The SI joints are preserved and sacral foraminal lines are intact. SOFT TISSUE: There is no significant soft tissue swelling or mass. No evidence of significant soft tissue calcifications. No radiopaque foreign bodies. No evidence of a hip joint effusion. IMPRESSION: No acute osseous abnormalities. Remainder of findings as described above. Electronically signed by: Ceci Lopes MD 11/10/2018 4:01 PM [facility]
--- NOTE | 2018-11-10 16:03 | RAD ---
EXAM: Pelvis CLINICAL INDICATION: Pain COMPARISON: There is no previous study for comparison. IMPRESSION: A single view of the pelvis reveals an intact bony ring. There are no fractures or bone lesions. The hip joints, SI joints, and pubic symphysis are unremarkable. IMPRESSION: Negative single view of the pelvis. Electronically signed by: Johann Friedman MD 11/10/2018 4:00 PM [facility]
[2018-11-10 16:45] VITALS: BP 171/95; TEMP 97.7
== END 2018-11-10 16:36 | disposition home or self-care (01) ==
LOC: ER 14:50
DX: M17.11 Unilateral primary osteoarthritis, right knee (principal); I48.91 Unspecified atrial fibrillation; I10 Essential (primary) hypertension; Z87.891 Personal history of nicotine dependence; Z85.72 Personal history of non-Hodgkin lymphomas; Z79.899 Other long term (current) drug therapy

== ENCOUNTER 2018-11-21 05:23 | Day surgery (SDC) | payer MEDICARE, OTHER ==
--- NOTE | 2018-11-19 11:43 | HP ---
CHIEF COMPLAINT: Right knee pain. HISTORY OF PRESENT ILLNESS: Azra is a 73-year-old female with a history of pain in the right knee. She has had pain going on for several months, but has gotten to the point where it has started to limit her range of motion. She had one incident where she said she felt the knee physically lock. She denies any radiation of pain or neurologic symptoms. She says the pain she is having seems to be located within the central portion of the knee and also along the joint- line. She has had injection in the past. PAST SURGICAL HISTORY: 1. Hysterectomy. 2. Total knee arthroplasty. 3. Shoulder replacement. 4. Colonoscopy. 5. Thyroid biopsy. MEDICATIONS: 1. Eliquis. 2. Zocor. 3. Valsartan. 4. Coreg. 5. Ropinirole. 6. Progesterone. 7. Lasix. 8. Advair. 9. Albuterol. 10. Imitrex. 11. OTC medications. ALLERGIES: NO KNOWN DRUG ALLERGIES. CODE STATUS: Full code. IMMUNIZATIONS: Up to date. FAMILY HISTORY: None pertinent to today's complaint. SOCIAL HISTORY: The patient does not drink, smoke or use any illicit drugs. REVIEW OF SYSTEMS: Negative except as indicated in the History of Present Illness. PHYSICAL EXAMINATION: VITAL SIGNS: Blood pressure 161/93. Pulse 78. Height 5'2". Weight 160 pounds. MENTAL STATUS: The patient is awake, alert, and is able to give a good history and participate in the physical. The patient is oriented to person, place and time. SKIN: Normal tone and turgor. MUSCULOSKELETAL: She has flexion to about 120 degrees today, but she says that is improved significantly. She lacks about 5 degrees of extension. She has pain along the joint-line. She has crepitus and palpable clicking. She has no varus/valgus or anterior/posterior laxity. The extremity shows no malalignment. Strength is 5/5 in knee evaluation to start a knee flexion. She has 5/5 strength in hip flexion. IMAGING: X-rays show some arthritic changes, but no acute bony abnormality. ASSESSMENT: 1. Knee pain with possible meniscus tear. 2. Arthritis. PLAN: Because of the pain she is having and the incident where she had a locked knee and ongoing clicking, I think it would be reasonable to scope her knee. We are going to do that to ensure she is not having any other issues. We have discussed the risks, benefits, and alternatives to that and the patient has given informed consent. #[id number] [facility]TDD
[2018-11-21] MEDS ORDERED: SODIUM CHL 0.9% 100ML MINI-BAG 100 ML IVPB ONE (05:52)
[2018-11-21] MEDS ORDERED: ceFAZolin SODIUM 1 GM VIAL ONE ×2 (05:53→06:34)
[2018-11-21] MEDS ORDERED: LACTATED RINGERS 1,000 ML ONE (05:53)
[2018-11-21] MEDS ORDERED: MIDAZOLAM INJ 2 MG/2 ML VIAL ONE (06:36)
[2018-11-21] MEDS ORDERED: fentaNYL CITRATE INJ 50 MCG/ML AMP ONE (06:36)
[2018-11-21] MEDS: ceFAZolin SODIUM 1 GM VIAL ONE ×2 (07:38→08:06)
[2018-11-21] MEDS: VANCOMYCIN HCL INJ 1,000 MG VIAL IVPB ONE ×2 (07:38→08:06)
[2018-11-21] MEDS: BUPIVACAINE 0.5% 30 ML VIAL INJ ONE ×2 (07:38→08:06)
[2018-11-21] MEDS: BUPIVACAINE LIPOSOME 13.3 MG/ML VIAL INJ ONE ×2 (07:38→08:06)
[2018-11-21 09:32] VITALS: BP 122/62; TEMP 97.6; O2SAT 96
[2018-11-21] MEDS ORDERED: KETOROLAC TROMETHAMINE INJ 30 MG/ML VIAL IV ONE (10:00)
[2018-11-21] MEDS ORDERED: LIDOCAINE 1% 10 ML VIAL INJ ONE (10:00)
[2018-11-21] MEDS ORDERED: ePHEDrine SULF 50 MG/ML IV ONE (10:00)
[2018-11-21] MEDS ORDERED: METOCLOPRAMIDE HCL INJ 10 MG/2 ML VIAL IV ONE (10:00)
[2018-11-21] MEDS ORDERED: PROPOFOL 200 MG/20 ML VIAL IV ONE (10:00)
[2018-11-21] MEDS ORDERED: raNITIdine HCL INJ 25 MG/ML VIAL IV ONE (10:00)
[2018-11-21] MEDS ORDERED: DEXAMETHASONE INJ 10 MG/ML VIAL IV ONE (10:00)
--- NOTE | 2018-11-21 10:57 | OP ---
DATE OF PROCEDURE: 11/21/18 PREOPERATIVE DIAGNOSIS: 1. Knee pain. 2. Meniscus tear. POSTOPERATIVE DIAGNOSIS: 1. Advanced osteoarthritis. 2. Meniscus tear. PROCEDURE: 1. Debridement. 2. Partial meniscectomy. SURGEON: Jose Guadalupe Porter MD. SNOWBOARDER: Jonathan Blair CST, SA-C. ANESTHESIA: General anesthesia. COMPLICATIONS: None. FINDINGS: 1. Flap tearing of the cartilage on the medial femoral condyle. 2. Degenerative tearing of the medial meniscus. 3. Normal anterior cruciate ligament. 4. Normal posterior cruciate ligament. 5. Full thickness cartilage loss in large portions of the lateral femoral condyle and lateral tibial plateau. 6. Complex tearing of the lateral meniscus. 7. Normal lateral gutter. 8. Normal suprapatellar pouch. 9. Grade 3 changes in the patellofemoral joint. 10. Normal medial gutter. INDICATION: Azra has a history of knee pain which has been getting progressively worse. She presented with some mechanical symptoms as well. Because of her symptoms and worsening discomfort, she requested operative intervention. After discussing the risks, benefits and alternatives to operative intervention, the patient has given informed consent. PROCEDURE: The patient was brought to the Operating Room and placed in supine position. General anesthesia was induced and the patient's leg was sterilely prepped and draped. Following prepping and draping, standard anteromedial and anterolateral portals were established. Diagnostic arthroscopy was carried out with the above findings. Following diagnostic arthroscopy, a 3.5 mm full radius shaver was used to debride the medial femoral condyle, the medial meniscus , the lateral femoral condyle, the lateral meniscus and lateral tibial plateau. Although there were no remaining free fragments, there was extensive full thickness cartilage loss as noted in the above findings. The knee was thoroughly irrigated and drained. Following draining of the knee, the wounds were closed with Nylon suture. Sterile dressings were placed. The patient was awoken from anesthesia and taken to Recovery. POSTOPERATIVE PLAN: The patient will be partial weightbearing and will followup with us in two days. #[id number] [facility]
== END 2018-11-21 09:21 | disposition home or self-care (01) ==
LOC: AMB 05:23
PROVIDERS: ATTEND Orthopaedic Surgery
DX: M23.203 Derangement of unspecified medial meniscus due to old tear or injury, right knee (principal); S83.271A Complex tear of lateral meniscus, current injury, right knee, initial encounter; M17.11 Unilateral primary osteoarthritis, right knee; I10 Essential (primary) hypertension; I48.91 Unspecified atrial fibrillation; Z88.5 Allergy status to narcotic agent; Z88.6 Allergy status to analgesic agent; Z90.710 Acquired absence of both cervix and uterus; Z96.619 Presence of unspecified artificial shoulder joint; Z96.659 Presence of unspecified artificial knee joint; Z79.01 Long term (current) use of anticoagulants; Z79.899 Other long term (current) drug therapy
CPT/HCPCS: 01400; 29881; 36415; 80048; 80307; 81001; 85025; 87070; 93005; J0690; J1100; J1885; J2250; J2765; J2780; J3010; J3370; J3490; J7050; J7120

== ENCOUNTER 2019-02-22 23:00 | Inpatient (IN) | payer MEDICARE, OTHER ==
--- NOTE | 2019-02-22 23:35 | ED.PDOC ---
History of Present Illness - General Chief Complaint: Abdominal Pain Stated Complaint: feeling bloated, "bowel obstruction" Time Seen by Provider: 02/22/19 23:31 Information Source: patient, RN notes reviewed, Vital Signs reviewed Additional Information: 74 YEAR OLD HERE FOR EVALUATION OF ABDOMINAL PAIN NAUSEA VOMITING STARTED TODAY SHE HAS KNOWN HISTORY OF MECHANICAL SMALL BOWEL OBSTRUCTION DUE TO ADHESIONS AFTER A HYSTERECTOMY 1991 SHE HAS COLICKY PAIN IN THE CENTRAL ABDOMEN ASSOCIATED WITH DISTENSION SHE HAS NO FEVER CHILLS HAS BEEN HAVING NORMAL BOWEL MOVEMENTS HER GI DOCTOR IS IN [place] DR OMER - History of Present Illness Abdominal Pain Onset Location: periumbilical Pain Radiation: no radiation Quality: cramping Timing/Duration: 24 hours Improving Factors: nothing Worsening Factors: nothing Associated Symptoms: denies symptoms Review of Systems - Review of Systems Constitutional: States: no symptoms reported EENTM: States: no symptoms reported Respiratory: States: no symptoms reported Cardiology: States: no symptoms reported Gastrointestinal/Abdominal: States: see HPI Genitourinary: States: no symptoms reported Musculoskeletal: States: no symptoms reported Skin: States: no symptoms reported Neurological: States: no symptoms reported Endocrine: States: no symptoms reported Hematologic/Lymphatic: States: no symptoms reported Past Medical History (General) - Patient Medical History Hx Seizures: No Hx Stroke: No Hx Dementia: No Hx Asthma: No Hx of COPD: No Hx Cardiac Disorders: Yes - a-fib Hx Congestive Heart Failure: No Hx Pacemaker: No Hx Hypertension: Yes Hx Diabetes: No Hx Renal Disease: No Hx Cancer: Yes - lymphoma 2008 (remission) Hx of HIV: No Hx Hepatitis C: No Hx MRSA: No Surgical History: Hysterectomy, other - Vaccination History Hx Tetanus, Diphtheria Vaccination: Yes Hx Influenza Vaccination: Yes Hx Pneumococcal Vaccination: No - Social History Hx Tobacco Use: No Hx Alcohol Use: No Hx Substance Use: No Hx Substance Use Treatment: No Hx Depression: No Hx Physical Abuse: No Hx Emotional Abuse: No - Female History Patient : No Family Medical History - Family History Mother Family History: Unknown Living Status: Hx Cardiac Disease: Yes - parents mi-in their late 50's Hx Family Cancer: Yes - ovarian/colon-half sister Physical Exam - Physical Exam General Appearance: Alert, Comfortable Eyes, Ears, Nose, Throat Exam: PERRL/EOMI, normal ENT inspection, TMs normal, pharynx normal Neck: non-tender, full range of motion, supple Respiratory: chest non-tender, lungs clear, normal breath sounds, no respiratory distress, no accessory muscle use Cardiovascular/Chest: normal peripheral pulses, regular rate, rhythm, no edema, no gallop, no JVD Gastrointestinal/Abdominal: normal bowel sounds, non tender, soft, no organomegaly, no pulsatile mass Neurologic: deputy building guard II-XII nml as tested, no motor/sensory deficits, alert, normal mood/affect Progress - Results/Orders Results/Orders: Laboratory Tests 02/22/19 02/22/19 23:36 23:36 WBC 12.1 H RBC 5.08 Hgb 14.0 Hct 43.9 MCV 86.5 MCH 27.6 MCHC 31.9 L RDW 15.2 H Plt Count 281 MPV 8.2 Absolute Neuts (auto) 9.10 H Absolute Lymphs (auto) 1.50 Absolute Monos (auto) 0.90 H Absolute Eos (auto) 0.60 H Absolute Basos (auto) 0.00 Neutrophils % 75.2 Lymphocytes % 12.0 L Monocytes % 7.4 Eosinophils % 5.0 Basophils % 0.4 Sodium 136 Potassium 3.9 Chloride 103 Carbon Dioxide 23 Anion Gap 13.9 BUN 22 H Creatinine 0.59 L BUN/Creatinine Ratio 37.3 H Random Glucose 106 H Serum Osmolality 275.7 Calcium 9.2 Total Bilirubin 1.4 H AST 26 ALT 24 Alkaline Phosphatase 55 Serum Total Protein 7.3 Albumin 4.3 Globulin 3.0 Albumin/Globulin Ratio 1.4 CT FULID FILLED LOUPS OF SMALL BOWEL SUGGESTIVE OF SMALL BOWEL OBSTRUCTION PATIENT LIKES TO STAY HERE DR HENDRIX CONTACTED AND CASE DISCUSSED WILL PLACE A NASO GASTRIC TUBE FOR DECOMPRESSION AND IV FLUIDS AND ADMIT FOR INPATIENT CARE Departure - Departure Clinical Impression: Small bowel obstruction, History of chronic atrial fibrillation Time of Disposition: 00:42 Disposition: Admit Patient Condition: Fair Departure Forms: ED Discharge - Pt. Copy, Patient Portal Self Enrollment Instructions: DI for Abdominal Pain-Adult Referrals: Aurelio Voss MD [Primary Care Provider] - 1-2 Weeks Home Medications: Ambulatory Orders Carvedilol [Coreg] 6.25 mg PO BID #0 02/16/13 Cholecalciferol [Vitamin D] 2,000 unit PO DAILY #0 02/16/13 Coenzyme Q10 (Ubidecarenone) [Co Q-10] 200 mg PO DAILY #0 02/16/13 Multiple Vitamin [Multi-Vitamin] 1 tab PO DAILY #0 02/16/13 Simvastatin [Zocor] 20 mg PO DAILY #0 02/16/13 Progesterone Micronized [Progesterone] 200 mg PO DAILY 07/06/17 Ropinirole Hydrochloride [Ropinirole ER] 2 mg PO BID 07/06/17 Apixaban [Eliquis] 5 mg PO DAILY 11/10/18 Fluticasone Propionate (Nasal) [Flonase] 50 mcg ALEX PRN PRN 11/10/18 Furosemide [Lasix] 20 mg PO PRN PRN 11/10/18 Magnesium Oxide (mg Supplement [Magnesium Oxide] 400 mg PO DAILY 11/10/18 Potassium Chloride [Klor-Con Sprinkle] 8 meq PO PRN PRN 11/10/18 Sumatriptan Succinate [Imitrex] 100 mg PO PRN PRN 11/10/18 Valsartan 160 mg PO DAILY 11/10/18 Fluticasone/Salmeterol 100/50 [Advair Diskus] 1 puff INH PRN PRN 11/19/18 Inositol Niacinate [Niacin Flush Free Formula] 1,000 mg PO BID 11/19/18 Multiple Minerals W/ Vitamins [Citracal Plus] 1 tab PO DAILY 11/19/18 Probiotic Product [Advanced Probiotic] 1 cap PO DAILY 11/19/18 Albuterol Sulfate Nebs [Proventil Nebs] 2.5 mg INH PRN PRN 02/22/19 Bio-Identical Hormone Pellets PRN PRN 02/22/19
[2019-02-22] MEDS ORDERED: KETOROLAC TROMETHAMINE INJ 30 MG/ML VIAL IV ONE (23:36)
--- NOTE | 2019-02-23 00:20 | CT ---
EXAM DESCRIPTION: Abdomen/Pelvis w/Contrast CLINICAL HISTORY: 74 years Female SMALL BOWEL OBSTRUCTION COMPARISON: 03/31/2018 TECHNIQUE: Contiguous axial images obtained through the abdomen and pelvis following IV contrast. Reformatted images obtained. This exam was performed according to our department optimization program which includes automated exposure control, adjustment of the mA and/or kv according to patient size and/or use of iterative reconstruction technique. FINDINGS: Fatty infiltration of the liver. Spleen is unremarkable. There is a tiny low-attenuation cystic area along the body of the pancreas which measures 6 mm and appears stable. Recommend continued follow-up. No adrenal masses. The kidneys appear unremarkable. No hydronephrosis. The gallbladder is visualized. No aneurysmal dilatation of the aorta. There is moderate fluid-filled distention of bowel. There is edema in the mesentery and a small amount of fluid in the pelvis. There are some scattered areas of wall thickening in the bowel in the pelvis. Focal area of transition with wall thickening which may reflect infectious or inflammatory enteritis resulting in partial obstruction of the bowel. No evidence of perforation. Diverticulosis without evidence of diverticulitis. The appendix is unremarkable. IMPRESSION: There is moderate fluid-filled dilatation of small bowel suggesting obstruction or partial obstruction. There is a relatively abrupt area of transition in the lower pelvis where there is some wall thickening and distal loops of small bowel. Findings may reflect infectious or inflammatory enteritis resulting in obstruction. The adhesion or stricture is also not excluded Small amount of fluid in the pelvis and in the mesentery Low-attenuation focus in the body of the pancreas which has been stable when compared to the prior examination. Recommend continued follow-up in 12 months to document stability Electronically signed by: Nelly Lorenzana MD 02/23/2019 12:18 AM CDT
[2019-02-23] MEDS ORDERED: KCL 20 MEQ/NS 1,000 ML IVS PRN (00:38)
--- NOTE | 2019-02-23 01:07 | HP ---
HISTORY OF PRESENT ILLNESS: The patient is a 74 year-old female with a significant history of returned small bowel obstructions. She had a hysterectomy in 1989 and ever since then for multiple factors, has had a handful of small bowel obstructions. She usually has some intermittent abdominal bloating and soreness, with an increase in abdominal circumference. Her last admission for obstruction was in March of 2018. She states she woke up this morning, had a bowel movement at 5:00 AM which was normal for her, that was very soft, slightly formed consistency. She began having some bloating throughout he morning and had a small amount of food at 9:00 AM. Since then and throughout the day, she had slightly worsening pain, which she tried to treat with hyoscyamine and hydrocodone without much relief. She had chicken broth around 8:00 PM today, with acute worsening of the pain, triggering her Emergency Room visit. Workup in the Emergency Room consisted of an abdominal pelvic CT which found a partial versus complete obstruction in the small bowel with small bowel changes. Small elevated white count was also found. Hospitalist was called for admission in consideration regarding her obstruction. PAST MEDICAL HISTORY: 1. Returned small bowel obstructions. 2. Chronic hypertension. 3. Lymphoma in remission. 4. Chronic atrial fibrillation on Eliquis. 5. Chronic migraines. PAST SURGICAL HISTORY: 1. Hysterectomy. . CURRENT MEDICATIONS: See updated medication list includin. Carvedilol 6.25 mg p.o. b.i.d. 2. Vitamin D, 2000 units p.o. daily. 3. Coenzyme Q10, 200 mg p.o. daily. 4. Multivitamin 1 tablet p.o. daily. 5. Simvastatin 20 mg p.o. daily. 6. Progesterone 200 mg p.o. daily. 7. Ropinirole ER 2 mg p.o. b.i.d. 8. Apixaban 5 mg p.o. daily. 9. Fluticasone 50 mcg p.r.n. 10. Lasix 20 mg p.o. p.r.n. 11. Sumatriptan Succinate 100 mg p.o. p.r.n. 12. Valsartan 160 mg p.o. daily. 13. Advair Diskus 1 puff p.r.n. FAMILY HISTORY: 1. Cardiac disease in both parents. 2. Family history of ovarian and colon cancer. SOCIAL HISTORY: Denies alcohol, denied tobacco, denies substance abuse. REVIEW OF SYSTEMS: GENERAL: No acute distress, no fever or chills. RESPIRATORY: Denies cough, no wheezing. CARDIAC: Denies chest pain or palpitations. GASTROINTESTINAL: Some abdominal bloating, abdominal soreness. NEUROLOGIC: Denies confusion or headache. SKIN: Denies skin rash or lesions. PHYSICAL EXAMINATION: VITAL SIGNS: Temperature 98 degree Fahrenheit. Pulse 79, blood pressure 170/85, respirations 20. 02 saturation 95%. GENERAL: Lying in bed comfortably, able to stand and put on gown without problem. CHEST: Lungs are clear to auscultation, no crackles or wheezing. CARDIOVASCULAR: Normal rate, slightly irregular rhythm, no pedal edema. ABDOMEN: Minimal bowel sounds, diffuse soreness without sharp pain, negative Multani sign, negative rebound. NEUROLOGIC: Alert and oriented to person, place and time, no focal deficits, no sensory deficits. LABORATORY: WBCs 12.1, hemoglobin 14.0, hematocrit 42.9, platelet count 281,000. Sodium 136, potassium 3.9, chloride 103, carbon dioxide 23, BUN/creatinine 22/0.59. Glucose 106, total bilirubin 1.4. All other within normal limits. IMAGING: Abdomen and pelvis CT with IV contrast 02/22/19: Fatty infiltration of the liver, cystic area along the body of the pancreas at 6 mm, recommending continued followup. Moderate fluid-filled distention of the bowel with edema in the mesentery and small amount of fluid. Slight wall thickening in focal areas which may reflect infectious or inflammatory enteritis resulting in the partial obstruction. No evidence of perforation. Abrupt area of transition in the lower pelvis, suggesting obstruction or partial obstruction. ASSESSMENT: 1. Partial obstruction versus complete obstruction of the small bowel, and history of patient with recurring small bowel obstruction. 2. Abdominal pain and bloating. 3. Chronic hypertension. 4. Chronic atrial fibrillation on Eliquis. 5. Chronic migraines. PLAN: We will admit the patient to observation in light of her small bowel obstruction. She is obtaining a nasogastric tube in the Emergency Room, will set this to low intermittent suction. Will keep her n.p.o. at this time and if not bowel movements or anything is made in the morning, then we could potentially administer Miralax p.o. which has helped the patient in the past. Will continue adequate pain control at this time. Of note, she did receive Toradol x1 in the Emergency Room. We will keep her n.p.o. We have asked the patient to monitor and watch her bowel movements as well as passing gas. The patient's primary care physician is Dr. Voss. Code status is Full Code. Discussed the plan with the patient and her daughter in the room, they are in agreement. #[id number] MTDD
[2019-02-23] MEDS ORDERED: SODIUM CHLORIDE 0.9% (FLUSH) 10 ML SYG IV PRN (01:17)
[2019-02-23] MEDS ORDERED: HYDROmorphone HCL INJ 2 MG/ML VIAL IV PRN (01:24)
[2019-02-23] MEDS ORDERED: IV SET AND CAP CHANGE INJ INJ SCH (01:30)
--- NOTE | 2019-02-23 01:36 | RAD ---
CHEST 02/23/2019 CLINICAL HISTORY: NG tube placement. COMPARISON: Chest 03/31/2018. TECHNIQUE: AP Chest. FINDINGS: There are two feeding tubes catheters coursing into the left upper abdomen. The tip of the catheters is not imaged. The heart is normal in size. Normal cardiothymic contour. Normal pulmonary vessels aorta. Lungs and pleural spaces are clear. Bones are intact. Left shoulder arthroplasty noted. IMPRESSION: 1. Two feeding tubes are seen extending into the left upper abdomen. The tip of the either catheter is not imaged. Consider additional AP image of the abdomen to fully assess. Electronically signed by: Janna Romero DO 02/23/2019 1:34 AM CDT
[2019-02-23] MEDS: SODIUM CHLORIDE 0.9% 1000ML 1,000 ML IVS PRN ×2 (01:59→11:54)
[2019-02-23] MEDS ORDERED: MAGNESIUM HYDROXIDE 30 ML UD PO ONE (15:54)
[2019-02-23] MEDS ORDERED: MAGNESIUM HYDROXIDE 30 ML UD ONE (15:58)
--- NOTE | 2019-02-23 19:31 | PN ---
DATE: 02/23/19 SUPERVISING PHYSICIAN: Koffi Cortes M.D. SUBJECTIVE: The patient is resting, sitting on the edge of the bed. NG tube is in place which is driving the patient crazy, she says, but she says she feels better. She has had no pain. She has actually had a little bowel movement and some gas passage. I did discuss with her the plan of care that we would work to try to get the NG tube out today, and she was in agreement with that plan. OBJECTIVE: VITAL SIGNS: She remains afebrile. Temperature 97.7, pulse 79, blood pressure 147/73, respirations 18, satting 97 on room air. I's and O's show a positive balance of 225. NG tube is showing total out since admission of 600, before that was 360 in the E. R. Weight 68.2 kg. GENERAL: The patient appears to be comfortable in no acute distress. HEENT: NG tube remains in place. Shows to be without any complications. CHEST: Lung sounds are clear to auscultation. HEART: Regular rate and rhythm. ABDOMEN: Soft with just some mild tenderness on deep palpation. No rebound tenderness. No point tenderness. Bowel sounds were active but hypoactive. EXTREMITIES: Without any edema. NEUROLOGIC: She was alert and oriented times three. LABORATORY: No additional laboratory this morning. ASSESSMENT: 1. Partial obstruction versus complete obstruction of the small bowel, and history of patient with recurring small bowel obstruction. 2. Abdominal pain and bloating. 3. Chronic hypertension. 4. Chronic atrial fibrillation on Eliquis. 5. Chronic migraines. PLAN: Will continue today with the gastric tube. I have asked them to clamp it and see how she does. If she is doing okay with the clamping, will go ahead and give her a dose of Milk of Magnesia at that point and let her have some ice chips and sips of water. If she is able to tolerate that tonight, will plan to remove the NG tube and let her have some clear liquids with MiraLAX. Will continue with pain management as needed. Will continue with IV fluids until she is able to take adequate oral hydration. Will continue to treat conservatively and hopefully if the patient can progress well enough, discharge on Monday. Will plan to get an x-ray in the morning and if she is at that point showing good improvements, will slowly titrate her diet until she is tolerating a good diet and having good output. At any point if she should show decline, will need to get a surgical consultation. Unfortunately at this point if it happens over the weekend, will need to get her transferred because Dr. Clemens is unavailable for consultation. I will take into consideration for possibly talking to Dr. Clemens if she is still here on Monday for consultation given that she has had multiple episodes of this. Until then will continue to monitor and treat as needed. #[id number] [facility]
[2019-02-23] MEDS ORDERED: APIXABAN 2.5 MG TAB PO ONE (20:17)
[2019-02-23] MEDS ORDERED: CARVEDILOL 3.125 MG TAB ONE (20:17)
[2019-02-23] MEDS ORDERED: ROPINIROLE HYDROCHLORIDE 2 MG PO SCH (21:00)
[2019-02-23] MEDS ORDERED: NON-FORMULARY MEDICATION 1 EA MIS (Carvedilol [Coreg] 6.25 MG) PO SCH (21:00)
[2019-02-23] MEDS ORDERED: NON-FORMULARY MEDICATION 1 EA MIS (Apixaban [Eliquis] 5 MG) PO SCH (21:00)
[2019-02-23] MEDS ORDERED: KCL 20MEQ/D5 1/2NS 1,000 ML IVS PRN (21:35)
[2019-02-23] MEDS: TEMAZEPAM 15 MG CAP PO PRN (22:07)
--- NOTE | 2019-02-24 06:44 | RAD ---
EXAM: XR Abdomen, 2 Views CLINICAL HISTORY: The patient is 74 years old and is Female; sbo vs partial TECHNIQUE: Frontal view of the abdomen/pelvis with upright view of the abdomen. COMPARISON: March 31, 2018 and February 22, 2019 CT abdomen FINDINGS: Intraperitoneal space: No free air. Gastrointestinal tract: Scattered gas-distended loops of bowel in a nonobstructive pattern, improved from prior. Bones/joints: Unremarkable. IMPRESSION: Scattered gas-distended loops of bowel in a nonobstructive pattern, improved from prior. Electronically signed by: Edwin Diaz MD 02/24/2019 6:41 AM CDT
[2019-02-24] MEDS ORDERED: MAGNESIUM HYDROXIDE 30 ML UD PO ONE (08:26)
[2019-02-24] MEDS: VALSARTAN 80 MG TAB PO SCH (09:01)
[2019-02-24] MEDS: CARVEDILOL 3.125 MG TAB PO SCH ×2 (09:02→21:03)
[2019-02-24] MEDS: APIXABAN 2.5 MG TAB PO SCH ×2 (09:02→21:03)
[2019-02-24] MEDS: POLYETHYLENE GLYCOL 3350 17 GM PCKT PO SCH (09:03)
[2019-02-24] MEDS: PROGESTERONE MICRONIZED 200 MG PO SCH (09:03)
[2019-02-24] MEDS: SODIUM CHLORIDE 0.9% (FLUSH) 10 ML SYG IV SCH ×2 (12:13→21:03)
--- NOTE | 2019-02-24 13:50 | PN ---
DATE: 02/24/19 SUPERVISING PHYSICIAN: Koffi Cortes M.D. SUBJECTIVE: The patient has been doing well since her NG tube came out. She has not had any nausea. Her pain is essentially gone. She is ambulating without any problems. She has had several bowel movements and is tolerating liquids. OBJECTIVE: VITAL SIGNS: Temperature 97.8, pulse 79, blood pressure 143/65, respirations 18, satting 98% on room air. I's and O's show 3 bowel movements and her weight is 68.4 with a balance that is positive at 400 with 1910 in, 1510 out. GENERAL: The patient appears to be in no distress. She has just finished ambulating in the hallway. She is alert. CHEST: Lung sounds were clear to auscultation. HEART: Regular rate and rhythm. ABDOMEN: Soft with just some mild tenderness noted on deep palpation to the left quadrant, but no rebound tenderness. No point tenderness. No peritoneal signs. Bowel sounds were present and normoactive. EXTREMITIES: Without any edema. NEUROLOGIC: She is alert and oriented times three. LABORATORY: White count now has normalized to 8,100 with hemoglobin 12.8, hematocrit 39.3, platelet count 273,000. Differential without a left shift. Chemistries show normal electrolytes with BUN 11, creatinine 0.57, calcium 8.4. RADIOLOGY: Abdominal x-ray this morning per radiology interpretation shows scattered gas, distended loops of bowel and nonobstructive pattern improved from prior exam. ASSESSMENT: 1. Partial obstruction versus complete obstruction of the small bowel, and history of patient with recurring small bowel obstruction with the patient showing near resolution and tolerating oral intake. 2. Abdominal pain and bloating, now resolved but due to #1. 3. Chronic hypertension. 4. Chronic atrial fibrillation on Eliquis. 5. Chronic migraines. PLAN: Will continue with current plan at this point with the NG tube out. I gave her an extra dose of Milk of Magnesia and MiraLAX today. I did finally get hold of Dr. Clemens and discussed the patient's case. Dr. Clemens felt that since the patient is making good progress he would recheck things tomorrow and follow as needed, but at this point did not see any reason for consultation. Dr. Clemens did suggest we go ahead and give an additional dose of Milk of Magnesia and keep her on a liquid diet. Her diet has been changed to full liquids. She continues to do ambulation and given that she is taking adequate oral intake now, I will saline lock her. Will reevaluate in the morning with an abdominal series and again based off of those findings and the patient's clinical presentation, discuss the case with Dr. Clemens again and hopefully be able to discharge her later tomorrow. #[id number] MTDD
[2019-02-24] MEDS ORDERED: SIMVASTATIN 20 MG TAB PO SCH (21:00)
[2019-02-24] MEDS: TEMAZEPAM 15 MG CAP PO PRN (21:21)
[2019-02-25 06:32] VITALS: TEMP 97.9
--- NOTE | 2019-02-25 07:17 | RAD ---
ABDOMEN 02/25/2019 CLINICAL HISTORY: Small bowel obstruction COMPARISON: Abdomen 02/25/2019 TECHNIQUE: Supine and upright AP images of the abdomen. FINDINGS: There are a few colonic fluid levels. There is no abnormal dilatation of the small and large bowel loops. No free air. No pathologic calcification. Solid visceral organ shadows appear normal. The heart is normal in size. Normal lung bases. Pleural spaces are clear. Intact bony pelvis. IMPRESSION: 1. A few colonic fluid levels suggest mild enteritis. Electronically signed by: Janna Romero DO 02/25/2019 7:15 AM CDT
[2019-02-25] MEDS: CARVEDILOL 3.125 MG TAB PO SCH (09:00)
[2019-02-25] MEDS: VALSARTAN 80 MG TAB PO SCH (09:55)
[2019-02-25] MEDS: POLYETHYLENE GLYCOL 3350 17 GM PCKT PO SCH (09:55)
[2019-02-25] MEDS: APIXABAN 2.5 MG TAB PO SCH (09:55)
[2019-02-25] MEDS: SODIUM CHLORIDE 0.9% (FLUSH) 10 ML SYG IV SCH (09:56)
[2019-02-25] MEDS: PROGESTERONE MICRONIZED 200 MG PO SCH (09:56)
[2019-02-25 10:35] VITALS: BP 134/75; O2SAT 99
--- NOTE | 2019-02-25 21:12 | DS ---
SUPERVISING PHYSICIAN: Jf Armstrong M.D. ADMISSION DIAGNOSIS: 1. Partial obstruction versus complete obstruction of the small bowel, and history of patient with recurring small bowel obstruction. 2. Abdominal pain and bloating. 3. Chronic hypertension. 4. Chronic atrial fibrillation on Eliquis. 5. Chronic migraines. DISCHARGE DIAGNOSIS: 1. Partial obstruction versus complete obstruction of the small bowel with a past history of small bowel obstructions with the patient showing resolution of symptoms and tolerating oral diet with active bowel movements. 2. Abdominal pain and bloating, resolved due to #1. 3. Chronic hypertension. 4. Chronic atrial fibrillation with the patient on chronic Eliquis and showing a controlled ventricular rate during hospitalization and at discharge. 5. Chronic migraines. 6. Hepatic steatosis, uncertain etiology needing followup as an outpatient. 7. Pancreatic cyst 6 mm in measurement on CT needing followup as an outpatient. REASON FOR HOSPITALIZATION: The patient is a 74 year-old female with a significant history of returned small bowel obstructions. She had a hysterectomy in 1989 and ever since then for multiple factors, has had a handful of small bowel obstructions. She usually has some intermittent abdominal bloating and soreness, with an increase in abdominal circumference. Her last admission for obstruction was in March of 2018. She states she woke up this morning, had a bowel movement at 5:00 AM which was normal for her, that was very soft, slightly formed consistency. She began having some bloating throughout he morning and had a small amount of food at 9:00 AM. Since then and throughout the day, she had slightly worsening pain, which she tried to treat with hyoscyamine and hydrocodone without much relief. She had chicken broth around 8:00 PM today, with acute worsening of the pain, triggering her Emergency Room visit. Workup in the Emergency Room consisted of an abdominal pelvic CT which found a partial versus complete obstruction in the small bowel with small bowel changes. Small elevated white count was also found. Hospitalist was called for admission in consideration regarding her obstruction. LABORATORY STUDIES: White count initially was 12,100, prior to discharge had normalized to 8,100. Hemoglobin and hematocrit were stable prior to discharge at 12.8 and 39.3 respectively with platelet count 373,000. Differential did show a slight left shift on admission but prior to discharge had resolved. Chemistries showed normal electrolytes both on admission and prior to discharge. Initial BUN was 22, prior to discharge was 11. Creatinine was normal at 0.57. Liver functions were all showing to be within normal limits, except for total bilirubin at 1.4. Urinalysis just showed 15 of ketones, otherwise within normal limits. MICROBIOLOGY: There were no microbiology specimens submitted. IMAGING STUDIES: Abdomen and pelvis CT on admission in the E. R. with contrast that showed fatty infiltration of the liver. There was a low attenuation cyst along the body of the pancreas which measured 6 mm and appeared stable. There was note of moderate fluid-filled dilation of the small bowel suggesting obstruction or partial obstruction. There was a relatively abrupt area of transition in the lower pelvis where there is some wall thickening in distal loops of small bowel. Findings could reflect infectious or inflammatory enteritis resulting in obstipation. Adhesion or stricture is not excluded. There was a small amount of fluid in the pelvis and mesentery. See that report for full details. She had several abdominal x-rays. Initial x-ray after admission and initiation of treatment per radiology interpretation showed scattered gas in distended loops of bowel and nonobstructive pattern improved from previous exam. Final x-ray on date of discharge was showing per radiology interpretation a few chronic fluid levels, just mild enteritis. HOSPITAL COURSE: Ms. Mckeon was admitted initially early on the morning of 02/23/19 for small bowel obstruction versus partial obstruction. Initially she was given pain management which did result in resolution of her symptoms. She had an NG tube placed in the E. R. for decompression of her gastric contents. Her NG tube was clamped periodically and she was showing low residuals at which time she was given Milk of Magnesia and the NG tube was pulled. She started tolerating oral intake with having several bowel movements and again was having no pain. She was able to advanced her diet prior to discharge and again was pain free with no fevers and no complicating factors. It was felt that she clinically progressed well enough to discharge to continue with outpatient management. During the hospital course a surgical consultation with Dr. Clemens was not able to be completed due to Dr. Clemens being out of town on initial day of admission, however he was able to follow the patient along and provide for the care of the patient. He felt that the patient was doing well enough that there was no need for consultation on the day of discharge, but he would be glad to see her in followup if needed. Again, it was felt that she had clinically progressed well enough to discharge and was stable. PHYSICAL EXAMINATION: VITAL SIGNS: Temperature 97.9, pulse 64, blood pressure 134/75, respirations 14, satting 9% on room air. CHEST: Clear to auscultation. HEART: Regular rhythm. ABDOMEN: Soft, non-tender. Positive bowel sounds. EXTREMITIES: Without any edema. NEUROLOGIC: She was alert and oriented times three. PLAN: Ms. Mckeon was discharged on 02/25/19. I did discuss her case with Dr. Voss prior to discharge and the decision was that the patient could discharge home to continue with a bowel cleanse with GoLYTELY and followup in the outpatient setting. She was to advance her diet as tolerated slowly. She was to increase her activity as tolerated and to resume her home medications as previous to hospitalization. She had a followup appointment scheduled with Dr. Voss on 02/28/19 at 1445. She did have some good results with Restoril for her insomnia and requested a small prescription to be followed-up as an outpatient with Dr. Voss. I did write her for a Restoril prescription. Medications at discharge: 1. GoLYTELY 4 liters. Instructed to take 8 ounces every 10 minutes until 4 liters consumed or effluent was clear. No refills. 2. Daily MiraLAX 17 grams, #30. 3. Restoril 15 mg at bedtime as needed. 4. Milk of Magnesia daily as needed for constipation. All other medications were continued as is prior to hospitalization. DISPOSITION: The patient was discharged home to the care of family. Condition at discharge was stable and improving. #[id number] [facility]
== END 2019-02-25 11:05 | disposition home or self-care (01) | DRG 389 ==
LOC: ER 23:00 → OBSVTOIN 02-23 01:07 → MS 02-23 01:07
PROVIDERS: ADMIT Family Medicine; ATTEND Nurse Practitioner Family
PROC: BW211ZZ Computerized Tomography (CT Scan) of Abdomen and Pelvis using Low Osmolar Contrast (ICD-10-PCS; principal; 2019-02-22)
PROC: 0D9670Z Drainage of Stomach with Drainage Device, Via Natural or Artificial Opening (ICD-10-PCS; 2019-02-23)
DX: K56.601 Complete intestinal obstruction, unspecified as to cause (principal); K86.2 Cyst of pancreas; K56.600 Partial intestinal obstruction, unspecified as to cause; I10 Essential (primary) hypertension; I48.2 Chronic atrial fibrillation; K76.0 Fatty (change of) liver, not elsewhere classified; G43.909 Migraine, unspecified, not intractable, without status migrainosus; Z79.02 Long term (current) use of antithrombotics/antiplatelets; Z85.72 Personal history of non-Hodgkin lymphomas; Z79.51 Long term (current) use of inhaled steroids; Z79.52 Long term (current) use of systemic steroids; Z79.899 Other long term (current) drug therapy

== ENCOUNTER 2019-05-03 23:07 | Emergency (ER) | payer MEDICARE, OTHER ==
[2019-05-03 23:26] VITALS: TEMP 98.4
--- NOTE | 2019-05-04 00:02 | ED.PDOC ---
History of Present Illness - General Chief Complaint: Cardiovascular Problem Stated Complaint: HTN/ headache / numbness / tingling to fingers Time Seen by Provider: 05/03/19 23:22 Source: patient Exam Limitations: no limitations - History of Present Illness Initial Comments: the patient is a 74-year-old female presenting to the emergency room after developing symptoms of some perioral tingling and some mild tingling in the fingers of both hands after she got out of her shower at home. No focal neurological changes. No difficulties with mentation, speech, ambulation or indigestion. Symptoms lasted 5-10 minutes. She does have a history of atrial fibrillation but is currently in a normal sinus rhythm with normal vital signs. She is pleasant and cooperative. She does take a coated blood thinner for her atrial fibrillation. No headache. No nuchal rigidity. No runny nose sore throat nausea vomiting or diarrhea. Timing/Duration: 1/2 hour Severity: mild Improving Factors: nothing Worsening Factors: nothing Associated Symptoms: malaise Allergies/Adverse Reactions: Allergies NO KNOWN ALLERGY Allergy (Verified 02/24/19 23:48) Home Medications: Ambulatory Orders Carvedilol [Coreg] 6.25 mg PO BID #0 02/16/13 Cholecalciferol [Vitamin D] 2,000 unit PO DAILY #0 02/16/13 Coenzyme Q10 (Ubidecarenone) [Co Q-10] 200 mg PO DAILY #0 02/16/13 Progesterone Micronized [Progesterone] 200 mg PO DAILY 07/06/17 Apixaban [Eliquis] 5 mg PO BID 11/10/18 Fluticasone Propionate (Nasal) [Flonase] 2 puff ALEX PRN PRN 11/10/18 Furosemide [Lasix] 20 mg PO PRN PRN 11/10/18 Magnesium Oxide (mg Supplement [Magnesium Oxide] 400 mg PO DAILY 11/10/18 Potassium Chloride [Klor-Con Sprinkle] 8 meq PO PRN PRN 11/10/18 Sumatriptan Succinate [Imitrex] 100 mg PO PRN PRN 11/10/18 Valsartan 160 mg PO DAILY 11/10/18 Fluticasone/Salmeterol 100/50 [Advair 100/50 Diskus] 1 puff INH PRN PRN 11/19/18 Probiotic Product [Advanced Probiotic] 1 cap PO DAILY 11/19/18 Albuterol Sulfate Nebs [Proventil Nebs] 2.5 mg INH PRN PRN 02/22/19 Bio-Identical Hormone Pellets 1 capsule SC .EVERY 5 MONTHS 02/22/19 Calcium-Magnesium W/ Vitamin D [Citracal Calcium+D S... 600-40-500 mg-mg-Unit] 2 tab PO DAILY 02/24/19 Inositol Niacinate [Niacin Flush Free] 2,000 mg PO DAILY 02/24/19 Multiple Vitamins W/ Minerals [Centrum Silver 50+Women] 1 tab PO DAILY 02/24/19 Simvastatin 20 mg BEDTIME 02/24/19 rOPINIRole HCL [Requip] 2 mg PO BID 02/24/19 Polyethylene Glycol 3350 [Miralax] 17 gm PO DAILY #30 pckt 02/25/19 Polyethylene Glycol 3350 [[id number]] 1 pow PO ONCE #1 pow 02/25/19 Temazepam [Restoril] 15 mg PO BEDTIME PRN #10 cap 02/25/19 Review of Systems - Review of Systems Constitutional: States: malaise EENTM: States: no symptoms reported Respiratory: States: no symptoms reported Cardiology: States: no symptoms reported Gastrointestinal/Abdominal: States: no symptoms reported Genitourinary: States: no symptoms reported Musculoskeletal: States: no symptoms reported Skin: States: no symptoms reported Neurological: States: anxiety Endocrine: States: no symptoms reported All other Systems: No Change from Baseline Past Medical History (General) - Patient Medical History Hx Seizures: No Hx Stroke: No Hx Dementia: No Hx Asthma: No Hx of COPD: No Hx Cardiac Disorders: Yes - afib Hx Congestive Heart Failure: No Hx Pacemaker: No Hx Hypertension: Yes Hx Diabetes: No Hx Renal Disease: No Hx Cancer: No Hx of HIV: No Hx Hepatitis C: No Hx MRSA: No Surgical History: Hysterectomy, other - Vaccination History Hx Tetanus, Diphtheria Vaccination: Yes Hx Influenza Vaccination: Yes Hx Pneumococcal Vaccination: No - Social History Hx Tobacco Use: No Hx Chewing Tobacco Use: No Hx Alcohol Use: No Hx Substance Use: No Hx Substance Use Treatment: No Hx Depression: No Hx Physical Abuse: No Hx Emotional Abuse: No - Activities of Daily Living Hospice Agency (if applicable):: None - Female History Patient is a Female of Child Bearing Age (10 -59 yrs old): No Patient : No Family Medical History - Family History Mother Family History: Unknown Living Status: Hx Cardiac Disease: Yes - parents mi-in their late 50's Hx Family Cancer: Yes - ovarian/colon-half sister Physical Exam - Physical Exam General Appearance: Alert, Anxious, No apparent distress Eye Exam: bilateral normal Ears, Nose, Throat: hearing grossly normal, normal ENT inspection, normal pharynx Neck: full range of motion, supple Respiratory: lungs clear, normal breath sounds, no respiratory distress, no accessory muscle use Cardiovascular/Chest: normal peripheral pulses, regular rate, rhythm, no edema Peripheral Pulses: radial,right: 2+, radial,left: 2+ Gastrointestinal/Abdominal: soft Rectal Exam: deferred Back Exam: no CVA tenderness, no vertebral tenderness Extremity: normal range of motion, non-tender, normal inspection, no pedal edema, normal capillary refill Neurologic: scanning coordinator II-XII nml as tested, no motor/sensory deficits, alert, normal mood/affect, oriented x 3 Skin Exam: normal color Comments: Vital Signs - 24 hr 05/03/19 05/03/19 23:20 23:23 Temperature 98.4 F Pulse Rate [ 86 86 apical] Respiratory 18 18 Rate Blood Pressure 163/88 [Right Arm] O2 Sat by Pulse 97 Oximetry Progress - Progress Progress: 05/04/19 00:02 the patient is a 74-year-old female presenting with symptoms that are most likely related to mild dehydration. She does need to increase her fluid intake over the next few days. Laboratory work, telemetry monitoring and vital signs are all reassuring here tonight. I see no focal symptoms indicative of a stroke at this time. She is already taking Eliquis for stroke prevention. As this is a potent blood thinner she does of course need to continue to monitor for any evidence of any spontaneous bleeding either from mucous membranes or from her gastrointestinal tract. it is also possible that she may be coming down with a mild viral illness and this simply be the initial symptoms. She needs to follow-up with her primary care doctor this coming week. ER warnings were given for any significant worsening. She is feeling good at this time. - Results/Orders Results/Orders: Laboratory Tests 05/03/19 05/03/19 05/03/19 23:23 23:23 23:38 WBC 8.9 RBC 4.89 Hgb 14.6 Hct 44.1 MCV 90.3 MCH 29.9 MCHC 33.1 RDW 16.3 H Plt Count 254 MPV 8.0 Absolute Neuts (auto) 5.90 Absolute Lymphs (auto) 1.60 Absolute Monos (auto) 0.80 Absolute Eos (auto) 0.60 H Absolute Basos (auto) 0.10 Neutrophils % 65.6 Lymphocytes % 18.2 L Monocytes % 9.1 H Eosinophils % 6.2 H Basophils % 0.9 Sodium 139 Potassium 3.8 Chloride 103 Carbon Dioxide 23 Anion Gap 16.8 BUN 33 H Creatinine 0.85 BUN/Creatinine Ratio 38.8 H Random Glucose 106 H Serum Osmolality 285.2 Calcium 9.5 Magnesium 2.2 Total Bilirubin 1.0 AST 20 ALT 20 Alkaline Phosphatase 54 Creatine Kinase 107 CK-MB (CK-2) 4.2 CK-MB (CK-2) % Not Reportable Troponin I < 0.02 B-Natriuretic Peptide 66.1 Serum Total Protein 7.1 Albumin 4.1 Globulin 3.0 Albumin/Globulin Ratio 1.4 Urine Color Yellow Urine Appearance Clear Urine pH 5.5 Ur Specific [place] 1.025 Urine Protein Negative Urine Glucose (UA) Negative Urine Ketones Negative Urine Blood Negative Urine Nitrite Negative Urine Bilirubin Negative Urine Urobilinogen 0.2 Ur Leukocyte Esterase Negative Urine RBC 0-1 Urine WBC 0-1 Ur Epithelial Cells 5-10 Urine Bacteria 0 Departure - Departure Clinical Impression: Dehydration Disposition: Discharge to Home or Self Care Condition: Fair Departure Forms: ED Discharge - Pt. Copy, Patient Portal Self Enrollment Instructions: Dehydration, Adult (DC) Diet: bland diet Activity: increase activity as tolerated Referrals: Aurelio Voss MD [Primary Care Provider] - 1-2 Days Home Medications: Ambulatory Orders Carvedilol [Coreg] 6.25 mg PO BID #0 02/16/13 Cholecalciferol [Vitamin D] 2,000 unit PO DAILY #0 02/16/13 Coenzyme Q10 (Ubidecarenone) [Co Q-10] 200 mg PO DAILY #0 02/16/13 Progesterone Micronized [Progesterone] 200 mg PO DAILY 07/06/17 Apixaban [Eliquis] 5 mg PO BID 11/10/18 Fluticasone Propionate (Nasal) [Flonase] 2 puff ALEX PRN PRN 11/10/18 Furosemide [Lasix] 20 mg PO PRN PRN 11/10/18 Magnesium Oxide (mg Supplement [Magnesium Oxide] 400 mg PO DAILY 11/10/18 Potassium Chloride [Klor-Con Sprinkle] 8 meq PO PRN PRN 11/10/18 Sumatriptan Succinate [Imitrex] 100 mg PO PRN PRN 11/10/18 Valsartan 160 mg PO DAILY 11/10/18 Fluticasone/Salmeterol 100/50 [Advair 100/50 Diskus] 1 puff INH PRN PRN 11/19/18 Probiotic Product [Advanced Probiotic] 1 cap PO DAILY 11/19/18 Albuterol Sulfate Nebs [Proventil Nebs] 2.5 mg INH PRN PRN 02/22/19 Bio-Identical Hormone Pellets 1 capsule SC .EVERY 5 MONTHS 02/22/19 Calcium-Magnesium W/ Vitamin D [Citracal Calcium+D S... 600-40-500 mg-mg-Unit] 2 tab PO DAILY 02/24/19 Inositol Niacinate [Niacin Flush Free] 2,000 mg PO DAILY 02/24/19 Multiple Vitamins W/ Minerals [Centrum Silver 50+Women] 1 tab PO DAILY 02/24/19 Simvastatin 20 mg BEDTIME 02/24/19 rOPINIRole HCL [Requip] 2 mg PO BID 02/24/19 Polyethylene Glycol 3350 [Miralax] 17 gm PO DAILY #30 pckt 02/25/19 Polyethylene Glycol 3350 [[id number]] 1 pow PO ONCE #1 pow 02/25/19 Temazepam [Restoril] 15 mg PO BEDTIME PRN #10 cap 02/25/19 Additional Instructions: the patient is a 74-year-old female presenting with symptoms that are most likely related to mild dehydration. She does need to increase her fluid intake over the next few days. Laboratory work, telemetry monitoring and vital signs are all reassuring here tonight. I see no focal symptoms indicative of a stroke at this time. She is already taking Eliquis for stroke prevention. As this is a potent blood thinner she does of course need to continue to monitor for any evidence of any spontaneous bleeding either from mucous membranes or from her gastrointestinal tract. it is also possible that she may be coming down with a mild viral illness and this simply be the initial symptoms. She needs to follow-up with her primary care doctor this coming week. ER warnings were given for any significant worsening. She is feeling good at this time.
[2019-05-04 00:17] VITALS: BP 147/82; O2SAT 96
== END 2019-05-04 00:09 | disposition home or self-care (01) ==
LOC: ER 23:07
DX: E86.0 Dehydration (principal); R20.2 Paresthesia of skin; I48.91 Unspecified atrial fibrillation; I10 Essential (primary) hypertension; Z79.01 Long term (current) use of anticoagulants; Z79.899 Other long term (current) drug therapy

== ENCOUNTER 2019-08-17 02:59 | Inpatient (IN) | payer MEDICARE, OTHER ==
[2019-08-17] MEDS ORDERED: MORPHINE SULFATE INJ 10 MG/ML VIAL IV ONE ×2 (03:18→05:36)
[2019-08-17] MEDS ORDERED: ONDANSETRON INJ 4 MG/2 ML VIAL IV ONE (03:18)
[2019-08-17] MEDS ORDERED: SODIUM CHLORIDE 0.9% 1000ML 1,000 ML IVS ONE (03:18)
--- NOTE | 2019-08-17 03:24 | ED.PDOC ---
History of Present Illness - General Chief Complaint: Abdominal Pain Stated Complaint: lower abd pain, Time Seen by Provider: 08/17/19 03:14 Information Source: patient, RN notes reviewed, Vital Signs reviewed, old records Exam Limitations: no limitations - History of Present Illness Initial Comments: 74 yo female presents to ED with for concerns that she has a bowel ob struction. States she has had achy abdominal pain for the past 3 days. Last night pain became more intense and became nauseated. States she has had similar symptoms 3-4 times in the past 10 years due to a bowel obstruction that resolved nonsurgically with NG tube placement in the past. Denies liloer, CP, constipation. Only previous abdominal surgery was hysterectomy in 1989. Review of Systems - Review of Systems Constitutional: Denies: chills, fever, weakness EENTM: Denies: ear pain, nose congestion, throat pain Respiratory: Denies: cough, short of breath Cardiology: Denies: chest pain, palpitations, syncope Gastrointestinal/Abdominal: States: abdominal pain, nausea. Denies: vomiting Genitourinary: Denies: dysuria, frequency Musculoskeletal: Denies: back pain, muscle pain Skin: States: no symptoms reported Neurological: States: no symptoms reported All other Systems: Reviewed and Negative Past Medical History (General) - Patient Medical History Hx Seizures: No Hx Stroke: No Hx Dementia: No Hx Asthma: No Hx of COPD: No Hx Cardiac Disorders: Yes - afib Hx Congestive Heart Failure: No Hx Pacemaker: No Hx Hypertension: Yes Hx Diabetes: No Hx Renal Disease: No Hx Cancer: No Hx of HIV: No Hx Hepatitis C: No Hx MRSA: No - Vaccination History Hx Tetanus, Diphtheria Vaccination: Yes Hx Influenza Vaccination: Yes Hx Pneumococcal Vaccination: No - Social History Hx Tobacco Use: No Hx Chewing Tobacco Use: No Hx Alcohol Use: No Hx Substance Use: No Hx Substance Use Treatment: No Hx Depression: No Hx Physical Abuse: No Hx Emotional Abuse: No - Female History Patient : No Family Medical History - Family History Mother Family History: Unknown Living Status: Hx Cardiac Disease: Yes - parents mi-in their late 50's Hx Family Cancer: Yes - ovarian/colon-half sister Physical Exam - Physical Exam General Appearance: Alert, Comfortable, No apparent distress Neck: non-tender, full range of motion, supple Respiratory: chest non-tender, lungs clear, normal breath sounds, no respiratory distress Cardiovascular/Chest: regular rate, rhythm, no edema, no murmur Gastrointestinal/Abdominal: other - soft, ND. TTP in LLQ. No guarding Back Exam: normal inspection, no CVA tenderness, no vertebral tenderness Extremity: normal range of motion, non-tender, normal inspection Neurologic: alert, normal mood/affect Progress - Progress Progress: 08/17/19 05:43 D/W Dr. Clemens web assistant. Recommends admit to hospital and he will consult. D/W Ying Mendez, hospitalist, will admit - Results/Orders Results/Orders: CT A/P IMPRESSION: Findings consistent with a small bowel obstruction involving distal small bowel loops. Focal abrupt narrowing within the pelvis at the level of the thick walled inflamed small bowel is noted. The location is unchanged from prior exam. The degree of dilatation and inflammation has increased. 08/17/19 03:18 Hold Metformin x 48Hrs [id number] 08/17/19 05:36 Tube(s):Nasogastric,Insertion PRN Laboratory Results - last 24 hr 08/17/19 08/17/19 08/17/19 03:25 03:25 03:30 WBC 13.4 H RBC 5.10 Hgb 14.9 Hct 45.1 MCV 88.4 MCH 29.2 MCHC 33.0 RDW 13.9 Plt Count 315 MPV 8.6 Absolute Neuts (auto) 10.10 H Absolute Lymphs (auto) 1.60 Absolute Monos (auto) 1.10 H Absolute Eos (auto) 0.40 Absolute Basos (auto) 0.10 Neutrophils % 75.7 Lymphocytes % 12.1 L Monocytes % 8.5 Eosinophils % 2.8 Basophils % 0.9 Sodium 138 Potassium 4.1 Chloride 104 Carbon Dioxide 23 Anion Gap 15.1 BUN 14 Creatinine 0.66 BUN/Creatinine Ratio 21.2 H Random Glucose 119 H Serum Osmolality 277.3 Calcium 9.2 Total Bilirubin 0.9 AST 21 ALT 20 Alkaline Phosphatase 64 Serum Total Protein 7.4 Albumin 4.0 Globulin 3.4 Albumin/Globulin Ratio 1.2 Lipase 26 Urine Color Yellow Urine Appearance Sl cloudy Urine pH 5.5 Ur Specific [place] 1.025 Urine Protein Negative Urine Glucose (UA) Negative Urine Ketones Trace Urine Blood Trace-intact H Urine Nitrite Negative Urine Bilirubin Negative Urine Urobilinogen 0.2 Ur Leukocyte Esterase Negative Urine RBC 0-1 Urine WBC 0 Ur Epithelial Cells 5-10 Calcium Oxalate Crystal 1+ Urine Bacteria 0 Urine Mucus Trace Departure - Departure Clinical Impression: SBO (small bowel obstruction) Abdominal pain Qualifiers: Abdominal location: generalized Qualified Code(s): R10.84 - Generalized abdominal pain Time of Disposition: 05:45 Disposition: Admit Patient Condition: Fair Departure Forms: ED Discharge - Pt. Copy, Patient Portal Self Enrollment Home Medications: Ambulatory Orders Carvedilol [Coreg] 6.25 mg PO BID #0 02/16/13 Cholecalciferol [Vitamin D] 2,000 unit PO DAILY #0 02/16/13 Coenzyme Q10 (Ubidecarenone) [Co Q-10] 200 mg PO DAILY #0 02/16/13 Progesterone Micronized [Progesterone] 200 mg PO DAILY 07/06/17 Apixaban [Eliquis] 5 mg PO BID 11/10/18 Fluticasone Propionate (Nasal) [Flonase] 2 puff ALEX PRN PRN 11/10/18 Furosemide [Lasix] 20 mg PO PRN PRN 11/10/18 Magnesium Oxide (mg Supplement [Magnesium Oxide] 400 mg PO DAILY 11/10/18 Potassium Chloride [Klor-Con Sprinkle] 8 meq PO PRN PRN 11/10/18 Sumatriptan Succinate [Imitrex] 100 mg PO PRN PRN 11/10/18 Valsartan 160 mg PO DAILY 11/10/18 Fluticasone/Salmeterol 100/50 [Advair 100/50 Diskus] 1 puff INH PRN PRN 11/19/18 Probiotic Product [Advanced Probiotic] 1 cap PO DAILY 11/19/18 Albuterol Sulfate Nebs [Proventil Nebs] 2.5 mg INH PRN PRN 02/22/19 Bio-Identical Hormone Pellets 1 capsule SC .EVERY 5 MONTHS 02/22/19 Calcium-Magnesium W/ Vitamin D [Citracal Calcium+D S... 600-40-500 mg-mg-Unit] 2 tab PO DAILY 02/24/19 Multiple Vitamins W/ Minerals [Centrum Silver 50+Women] 1 tab PO DAILY 02/24/19 rOPINIRole HCL [Requip] 2 mg PO BID 02/24/19 Polyethylene Glycol 3350 [Miralax] 17 gm PO DAILY #30 pckt 02/25/19 Polyethylene Glycol 3350 [[id number]] 1 pow PO ONCE #1 pow 02/25/19 Simvastatin [Zocor] 20 mg PO DAILY 08/17/19 Comments: Will place NG tube and admit for surgical consult and treatment for SBO Decision To Admit - Decistion To Admit Decision to Admit Date: 08/17/19 Decision to Admit Time: 05:44
--- NOTE | 2019-08-17 05:30 | CT ---
EXAM: CT Abdomen and Pelvis With Intravenous Contrast CLINICAL HISTORY: The patient is 74 years old and is Female; Diffuse abd pain TECHNIQUE: Axial computed tomography images of the abdomen and pelvis with intravenous contrast. Sagittal and coronal reformatted images were created and reviewed. This CT exam was performed using one or more of the following dose reduction techniques: automated exposure control, adjustment of the mA and/or kV according to patient size, and/or use of iterative reconstruction technique. COMPARISON: CT of the abdomen and pelvis February 23, 2019. FINDINGS: LUNG BASES: Unremarkable. No mass. No consolidation. ABDOMEN: LIVER: The liver is mildly fatty. Calcified granuloma within the liver is noted. A 0.9 cm cyst within the right hepatic lobe is present. GALLBLADDER AND BILE DUCTS: No calcified stones. No ductal dilation. PANCREAS: The previously demonstrated low attenuating focus within the head of the pancreas is not definitively seen. SPLEEN: Several splenic granuloma are present. ADRENALS: Unremarkable. No mass. KIDNEYS AND URETERS: Unremarkable. The kidneys enhance symmetrically. No obstructing renal or ureteral calculus is seen. No hydronephrosis or hydroureter. No perinephric fluid or stranding. STOMACH AND BOWEL: The stomach is minimally distended. The proximal small bowel is decompressed. Multiple dilated fluid-filled and inflamed small bowel loops are present within the mid to lower abdomen. Transition within the lower pelvis is present at the site of a thick walled of small bowel. The distal small bowel is decompressed. A moderate amount of stool is present throughout the colon. PELVIS: APPENDIX: The appendix is normal in caliber without surrounding inflammation. BLADDER: Unremarkable. No mass. REPRODUCTIVE: Unremarkable as visualized. ABDOMEN and PELVIS: INTRAPERITONEAL SPACE: Unremarkable. No free air. No significant fluid collection. BONES/JOINTS: Minimal degenerative change of the spine is present. SOFT TISSUES: The soft tissues are normal. VASCULATURE: Atherosclerosis of the vasculature is present. The vessels are normal in caliber. No abdominal aortic aneurysm. LYMPH NODES: Unremarkable. No enlarged lymph nodes. IMPRESSION: Findings consistent with a small bowel obstruction involving distal small bowel loops. Focal abrupt narrowing within the pelvis at the level of the thick walled inflamed small bowel is noted. The location is unchanged from prior exam. The degree of dilatation and inflammation has increased. Electronically signed by: Sosa Prakash MD 08/17/2019 5:28 AM [facility]
--- NOTE | 2019-08-17 07:04 | HP ---
CHIEF COMPLAINT: Abdominal pain, small bowel obstruction. SUPERVISING PHYSICIAN: Koffi Cortes MD HISTORY OF PRESENT ILLNESS: Ms. Mckeon is a 73 year-old female patient who has a history of recurrent small bowel obstruction. Today, she presented to the Emergency Room with some abdominal pain and bloating associated with some nausea but no actually vomiting until they tried to place a nasogastric tube in the Emergency Department. She was last admitted here in February for partial small bowel obstruction. At that time, she was treated medically with good resolution of symptoms. She noted that she had been having some achy abdominal type pains over the last several days and noted last night they had become more intense and worse. At this point, she presented to the Emergency Room for evaluation this morning. She denied any fever, chills, chest pain or any obvious constipation. The only obvious surgical history she was a hysterectomy in 1989. CT of her abdomen in the Emergency Room revealed some dilated loops of small bowel with a transition point in the pelvis which is consistent with previous CT scans, the last 3 times showing obstruction in the same area with some mild thickening of the small bowel. There was no obvious free fluid or free air. Laboratory studies showed she had a mild leukocytosis of 13,500 with no left shift. Chemistries were essentially within normal limits. Glucose was 119, electrolytes showing normal electrolytes with creatinine of 0.6. Liver functions all within normal limits. Vital signs showed she seemed to be stable with temperature of 97, heart rate 96, mildly hypertensive with but otherwise 149/91, oxygen saturation 96% on room air. Surgical consultation was requested with Dr. Clemens who saw the patient in the Emergency Room. Dr. Clemens requested the patient be admitted for medical management. At this point, she was no longer having any abdominal pains and has resolved in the past with conservative treatment measures. She was admitted in stable condition. PAST MEDICAL HISTORY: 1. Recurrent small bowel obstructions, unknown etiology. 2. Chronic hypertension. 3. Lymphoma in remission. 4. Chronic atrial fibrillation on Eliquis. 5. Chronic migraines. PAST SURGICAL HISTORY: 1. Hysterectomy. CURRENT MEDICATIONS: 1. Requip 2 mg b.i.d. 2. Valsartan 160 mg daily. 3. Imitrex 100 mg p.r.n. 4. Zocor 20 mg daily. 5. Progesterone 200 mg daily. 6. Probiotic 1 capsule daily. 7. Potassium chloride daily. 8. Miralax 17 grams daily. 9. Multivitamins 1 daily. 10. Magnesium Oxide tablet, 400 mg daily. 11. Advair 100/50 Diskus, 1 puff inhaled p.r.n. 12. Flonase 1 or 2 puffs nare p.r.n. 13. Coenzyme Q10, 200 mg daily. 14. Vitamin D 2000 units daily. 15. Coreg 6.25 mg b.i.d. 16. Calcium with magnesium and vitamin D, 2 tablets daily. 17. Bioidentical hormone pellets. 18. Eliquis 5 mg b.i.d. 19. Proventil Nebs 2.5 mg inhaled p.r.n. ALLERGIES: NO KNOWN DRUG ALLERGIES. FAMILY HISTORY: Cardiac disease in both parents with noted history of cancers including ovarian and colon. SOCIAL HISTORY: The patient denies any alcohol or illicit drug use. Denies tobacco use. She is retired, and lives in [place], [place]. REVIEW OF SYSTEMS: CONSTITUTIONAL: Denies chills, fevers or generalized weakness. HEENT: Denies earache, sore throat, nasal congestion or headaches. Does have a history of chronic migraines. RESPIRATORY: Denies coughing, wheezing or shortness of breath. GI: As noted in history of present illness with some abdominal pain, associated nausea but denies any actual vomiting. : Denies dysuria, hematuria or polyuria. SKIN: Denies unexplained lesions, rashes or moles. MUSCULOSKELETAL: Denies muscle pain, back pain or joint swelling. NEUROLOGICAL: Negative for seizures, ataxia or other focal deficits. PHYSICAL EXAMINATION: VITAL SIGNS: Temperature 69, blood pressure 136/72, respirations 18, oxygen saturation 95% on room air. GENERAL: On admission to the medical/surgical floor, the patient appears to be resting comfortably and in no acute distress. She is alert. HEENT: Tympanic membranes clear bilaterally. Oropharynx pink and moist without any lesions. NECK: Full range of motion. No jugular venous distention. CHEST: Lung sounds are clear to auscultation without rhonchi, rales, or wheezes. CARDIOVASCULAR: Slightly irregular rate and rhythm with no appreciable murmurs, rubs, or gallops. ABDOMEN: Soft, mildly distended, no obvious pain to palpation. No guarding, no rebound tenderness. BACK: No CVA or vertebral tenderness. EXTREMITIES: No cyanosis, clubbing, or edema. NEUROLOGIC: Cranial nerves II through XII are grossly intact. Facial features are symmetrical. Extraocular movements are normal. No notable nystagmus. He is alert, and oriented x3. LABORATORY: White count 13,400, hemoglobin 14.9, hematocrit 45.1, platelet count 315,000. Differential shows to be without a left shift currently. Chemistries showed normal electrolytes with a BUN of 14, creatinine 0.66. Liver functions all within normal limits. Urinalysis showed a trace of intact blood. RADIOLOGY: Abdominal/pelvic CT and per radiology interpretation revealed some dilated loops of small bowel with the transition point in the pelvis which is consistent with previous CT scans, the previous 2 times showing obstruction in the same area. There is also note of some mild thickening of the small bowel wall but no free air or fluid. ASSESSMENT: 1. Partial versus complete bowel obstruction with a transition point in the pelvis noted on CT scan, likely obvious from adhesions from previous surgeries with the patient being currenty controlled medically and followed by Dr. Clemens, general surgeon. 2. Abdominal pain and bloating secondary to #1, 3. Chronic hypertension. 4. Chronic atrial fibrillation on Eliquis for control of ventricular rate. 5. Chronic migraines. PLAN: The patient is going to be admitted for medical management and surgical consultation for documented small bowel obstruction noted on CT. They did place an NG tube, however, the patient was unable to tolerate and this was removed and since admission the patient has been without any significant amount of nausea. If she does present again with more nausea, certainly we will need to replace an NG tube for symptom control. I did talk with Dr. Clemens and he wants her to keep her n.p.o., fluids, and manage with morphine and try a Dulcolax suppository after admission. Will continue to monitor for pain and provide adequate pain control with fluid hydration as noted. She will remain on her oral medications including Coreg, Valsartan and Eliquis for atrial fibrillation and anticoagulation. We will go ahead and start her on some IV fluids with D5 half normal saline 20 of potassium at 125 an hour. Until we can transition to outpatient management, we will continue to monitor and treat as needed [id number]
--- NOTE | 2019-08-17 12:07 | CONS ---
DATE OF CONSULTATION: 08/17/19 HISTORY OF PRESENT ILLNESS: The patient is a 74 year-old female who has a history of recurrent small bowel obstruction. She presents today with abdominal pain and bloating, some nausea and she vomited when they tried to place an nasogastric tube in the Emergency Room. PAST MEDICAL HISTORY: 1. 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 2. Atrial fibrillation on Eliquis. 3. Migraine headaches. 4. Hypertension. PAST SURGICAL HISTORY: 1. Hysterectomy years ago. CURRENT MEDICATIONS: Noted on the chart. ALLERGIES: FAMILY HISTORY: Positive for cardiac disease, ovarian and colon cancer. SOCIAL HISTORY: She does not use alcohol or tobacco. REVIEW OF SYSTEMS: There has been no change in her bowel habits. No blood per rectum or melenic stools. There has been no weight loss. She denies shortness of breath, chest pain or productive cough. She denies urinary symptoms. PHYSICAL EXAMINATION: VITAL SIGNS: Afebrile and normotensive. GENERAL: The patient is awake, alert and cooperative, and in minimal distress. HEENT: Reveals the sclera to be nonicteric. Mucous membranes are moist. NECK: Without CVA tenderness. BACK: Without CVA tenderness. CHEST: She has equal breath sounds. HEART: Has an irregular rhythm. ABDOMEN: Soft, distended and mildly tender, especially in the suprapubic area without guarding or mass. Bowel sounds are decreased. PELVIC AND RECTAL: Examinations are deferred. EXTREMITIES: Without clubbing, cyanosis or edema. LABORATORY: White count 13.4 with a normal differential, 75% neutrophils. Hemoglobin 14.9 and 350,000 platelets. Potassium 4.1, creatinine 0.66. Liver functions are within normal limits as is the lipase. Blood sugar was 119. Urinalysis was clear with a specific gravity of 1.025. CT scan reveals dilated loops of small bowel with a transition point in the pelvis consistent with the previous CT scans times 2 showing the obstruction in the same areas, also mild thickening of the small bowel wall. No free air or free fluid. IMPRESSION: 1. Partial versus complete aggregate obstruction in the pelvis likely secondary to adhesions in a patient who is minimally symptomatic currently. PLAN: We will start with conservative management of IV fluids and NPO status with placement of a nasogastric tube if she develops vomiting. If she becomes worsened requiring emergent surgical care, she will be transferred. Otherwise we will treat her conservatively and consider an elective laparotomy. #[id number] [facility]
[2019-08-17] MEDS ORDERED: MORPHINE SULFATE INJ 10 MG/ML VIAL IV PRN (12:15)
[2019-08-17] MEDS ORDERED: SODIUM CHLORIDE 0.9% (FLUSH) 10 ML SYG IV PRN (12:15)
[2019-08-17] MEDS ORDERED: ONDANSETRON INJ 4 MG/2 ML VIAL IV PRN (12:15)
[2019-08-17] MEDS: KCL 20MEQ/D5 1/2NS 1,000 ML IVS PRN ×2 (12:29→19:14)
[2019-08-17] MEDS ORDERED: IV SET AND CAP CHANGE INJ INJ SCH (12:30)
[2019-08-17] MEDS ORDERED: ALBUTEROL SULFATE 2.5 MG/3 ML VIAL NEB PRN (16:04)
[2019-08-17] MEDS ORDERED: BISACODYL SUPPOSITORY 10 MG PR ONE (16:07)
[2019-08-17] MEDS ORDERED: CARVEDILOL 3.125 MG TAB ONE (19:10)
[2019-08-17] MEDS: APIXABAN 5 MG TAB PO SCH (20:05)
[2019-08-17] MEDS ORDERED: NON-FORMULARY MEDICATION 1 EA MIS (Carvedilol [Coreg] 6.25 MG) PO SCH (21:00)
[2019-08-18] MEDS: KCL 20MEQ/D5 1/2NS 1,000 ML IVS PRN ×3 (02:25→19:27)
[2019-08-18] MEDS ORDERED: VALSARTAN 80 MG TAB ONE (07:49)
[2019-08-18] MEDS: VALSARTAN 80 MG TAB PO SCH (08:10)
[2019-08-18] MEDS: CARVEDILOL 3.125 MG TAB PO SCH ×2 (08:11→20:46)
[2019-08-18] MEDS: PROGESTERONE MICRONIZED 200 MG PO SCH (08:26)
--- NOTE | 2019-08-18 08:41 | RAD ---
EXAM: XR Abdomen, 2 Views CLINICAL HISTORY: SBO TECHNIQUE: Frontal view of the abdomen/pelvis with upright view of the abdomen. COMPARISON: 08/17/2019. FINDINGS: Limitations: None. Intraperitoneal space: No free air. Gastrointestinal tract: Air and stool scattered throughout nondilated intestinal loops. Bones/joints: Unremarkable. IMPRESSION: No acute findings in the abdomen or pelvis. Electronically signed by: Lynn Infante MD 08/18/2019 8:39 AM TRANSITIONS RN CARE COORDINATOR
[2019-08-18] MEDS ORDERED: MAGNESIUM HYDROXIDE 30 ML UD PO ONE (08:59)
[2019-08-18] MEDS: APIXABAN 5 MG TAB PO SCH ×2 (09:18→20:46)
--- NOTE | 2019-08-18 12:42 | RAD ---
EXAM: XR Chest, 1 View CLINICAL HISTORY: ng tube placement verification TECHNIQUE: Frontal view of the chest. COMPARISON: No relevant prior studies available. FINDINGS: Limitations: None. Lungs: Unremarkable. No consolidation. Pleural space: Unremarkable. No pneumothorax. Heart: Unremarkable. No cardiomegaly. Mediastinum: Unremarkable. Bones/joints: Visualized portions of left shoulder arthroplasty components intact. Tubes, lines and devices: Nasogastric tube is kinked upon itself in the mid esophagus and terminates in the proximal to mid esophagus. IMPRESSION: Malposition of the nasogastric tube. Electronically signed by: Lynn Infante MD 08/18/2019 12:40 PM [facility]
--- NOTE | 2019-08-18 21:26 | PN ---
DATE: 08/18/19 SUPERVISING PHYSICIAN: Koffi Cortes M.D. SUBJECTIVE: The patient has had several small bowel movements since last night and this morning. She has not had any nausea. She has not had any recurrence of her abdominal pain. She does remain on NPO status and is getting fluids. Dr. Clemens is following the patient. OBJECTIVE: VITAL SIGNS: temperature 97.8, pulse 79, blood pressure 146/79, respirations 16, satting 97% on room air. I's and O's are showing a negative balance of 558. Weight is 68.4 kg. She has had 2 bowel movements. GENERAL: The patient is sitting on the bedside chair resting comfortably. Appears to be in no acute distress. CHEST: Lung sounds are clear to auscultation. HEART: Regular rate and rhythm. ABDOMEN: Soft, non-tender. Positive bowel sounds. EXTREMITIES: Without any edema. NEUROLOGIC: She is alert and oriented times three. LABORATORY: White count 6,900, now normalized with differential showing to be without a left shift. Other chemistries were within normal limits yesterday. RADIOLOGY: Repeat abdominal series this morning per radiology interpretation showed no acute findings in the abdomen or pelvis. ASSESSMENT: 1. Recurrent small bowel obstructions, unknown etiology with the patient having bowel movements and showing good response to conservative medical treatment. 2. Chronic hypertension, resolving. 3. Lymphoma in remission. 4. Chronic atrial fibrillation on Eliquis. 5. Chronic migraines. PLAN: After seeing the patient and talking with Dr. Clemens, we are still going to keep the patient NPO and try some Milk of Magnesia, and reassess in the morning. The plan at this point is if she can go home at discharge then probably come back later in the week or the week after for planned surgical procedure to help resolve some adhesions to prevent further problems from future issues as this is her fourth time for hospitalization. Will hold her Eliquis tonight at Dr. Clemens's request and will follow the patient with Dr. Clemens. Until we can transition to outpatient management will continue to monitor and treat as needed. [facility][id number] [facility]
[2019-08-19] MEDS: KCL 20MEQ/D5 1/2NS 1,000 ML IVS PRN (03:09)
--- NOTE | 2019-08-19 07:56 | RAD ---
EXAM: XR Abdomen, 2 Views CLINICAL HISTORY: fu bowel obstruction TECHNIQUE: Frontal view of the abdomen/pelvis with upright view of the abdomen. COMPARISON: 08/18/2019. FINDINGS: Limitations: None. Intraperitoneal space: No free air. Gastrointestinal tract: Air and stool scattered throughout nondilated intestinal loops. Bones/joints: Degenerative changes present in the spine. IMPRESSION: Nonobstructive intestinal gas pattern. Electronically signed by: Lynn Infante MD 08/19/2019 7:55 AM GRAVEL SCREENER
[2019-08-19] MEDS: APIXABAN 5 MG TAB PO SCH ×2 (08:50→21:10)
[2019-08-19] MEDS: CARVEDILOL 3.125 MG TAB PO SCH ×2 (09:20→21:10)
[2019-08-19] MEDS: VALSARTAN 80 MG TAB PO SCH (09:21)
[2019-08-19] MEDS: PROGESTERONE MICRONIZED 200 MG PO SCH (09:27)
[2019-08-19] MEDS ORDERED: MAGNESIUM HYDROXIDE 30 ML UD PO ONE (12:16)
[2019-08-19] MEDS: POLYETHYLENE GLYCOL 3350 17 GM PCKT PO SCH (13:23)
--- NOTE | 2019-08-19 14:39 | PN ---
SUPERVISING PHYSICIAN: Alexa Bender MD DATE: 08/19/19 SUBJECTIVE: The patient continues to have abdominal pain. She has been having some small bowel movements. She has not yet been started on a diet. She denies any abdominal pains and has had no chest pain, nausea or vomiting. OBJECTIVE: VITAL SIGNS: Temperature 98.2. Pulse 83. Blood pressure 134/69. Respirations 18. Saturation 96% on room air. Weight 65.9 kg. GENERAL: The patient is resting comfortably, visiting with family. CHEST: Lung sounds are clear to auscultation. HEART: Regular rate and rhythm. ABDOMEN: Soft, nontender. Positive bowel sounds. EXTREMITIES: Without any edema. NEUROLOGIC: She is alert and oriented times three. LABORATORY: No additional lab studies were completed. RADIOLOGY: Abdominal series this morning per radiology interpretation is without any acute findings showing nonobstructive intestinal gas pattern. ASSESSMENT: 1. Recurrent small bowel obstruction, uncertain etiology, with the patient showing good response to medical management with resolving symptoms, followed by Dr. Clemens, general surgeon. 2. Chronic hypertension, resolving. 3. Lymphoma in remission. 4. Chronic atrial fibrillation on Eliquis. 5. Chronic migraines. PLAN: Dr. Clemens has seen the patient today and recommends she be started on clear liquids. He also wants her to have some MiraLAX and Milk of Magnesia in attempts to continue with bowel movements. The plan will be that if she can tolerate a diet without any complications tonight, she will go home in the morning. Dr. Clemens will plan to schedule her Monday for an elective surgical procedure to try to resolve some of the adhesions that are possibly related to causing her recurrent bowel obstructions as this is her fourth in the last several months. We resumed all her medications. We did an EKG which showed normal sinus rhythm. We will continue to monitor as she advances her diet. If she does okay overnight, she will discharge in the morning to followup with Dr. Clemens as mentioned above. Until then, we will continue to monitor and treat as needed. [facility][id number] [facility]
[2019-08-20] MEDS: VALSARTAN 80 MG TAB PO SCH (09:59)
[2019-08-20] MEDS: APIXABAN 5 MG TAB PO SCH (09:59)
[2019-08-20] MEDS: POLYETHYLENE GLYCOL 3350 17 GM PCKT PO SCH (09:59)
[2019-08-20] MEDS: CARVEDILOL 3.125 MG TAB PO SCH (09:59)
[2019-08-20] MEDS: PROGESTERONE MICRONIZED 200 MG PO SCH (10:00)
[2019-08-20 16:21] VITALS: BP 131/72; TEMP 98.1; O2SAT 95
[2019-08-20] MEDS ORDERED: SIMVASTATIN 20 MG TAB PO SCH (21:00)
--- NOTE | 2019-08-27 10:55 | DS ---
SUPERVISING PHYSICIAN: Alexa Bender MD DISCHARGE DIAGNOSIS: 1. Recurrent small bowel obstruction, uncertain etiology. The patient has shown good response to medical management with resolving symptoms. She is also being followed by Dr. Clemens, general surgeon. 2. Chronic hypertension, resolved. 3. Lymphoma in remission. 4. Chronic atrial fibrillation on Eliquis. 5. Chronic migraines. HISTORY OF PRESENT ILLNESS: This is a 74-year-old female patient who has a history of recurrent small bowel obstruction. On the date of admission, she presented to the Emergency Room with some abdominal pain and bloating associated with some nausea. There was no vomiting until they tried to place a nasogastric tube in the Emergency Department. She was actually admitted here in February of this year for a partial small bowel obstruction. At that time, she was treated medically with good resolution of symptoms. Over the previous days, she had some achy abdominal type pains and noted they had become more intense. They worsened to the point that she had to come to the Emergency Room for evaluation. She denied any fever, chills, chest pain or obvious constipation. Her surgical history is positive for hysterectomy in 1989. CT of her abdomen revealed some dilated loops of small bowel with a transition point in the pelvis which is consistent with previous CT scans, the last 3 times showing obstruction in the same area with some mild thickening of the small bowel. There was no free fluid or free air. Laboratory studies showed leukocytosis of 13,500 with no left shift. Chemistries were essentially within normal limits. Glucose was 119, creatinine 0.6. Liver functions all within normal limits. Vital signs were stable with temperature of 97, heart rate 96, mildly hypertensive at 149/91, oxygen saturation 96% on room air. Dr. Clemens, general surgeon, was consulted and he requested the patient be admitted for medical management through the hospitalist services. She was admitted in stable condition. HOSPITAL COURSE: The patient had an NG tube placed, but she was unable to tolerate it and it was removed. She had no significant nausea although she did have some antiemetics. She was placed on bowel rest and made NPO. She was also given morphine for pain and Dulcolax suppositories. She is on Eliquis for atrial fibrillation and was given her home medications. Her symptoms slowly resolved. She had several small bowel movements during her stay. There were no further complaints of nausea. Dr. Clemens saw her and gave her several doses of Milk of Magnesia. Dr. Clemens also talked with the patient about discharging home and to return to the hospital for surgical intervention for lysis of adhesions. Again, she had several bowel movements after the Milk of Magnesia with no further abdominal pain, nausea or vomiting. Her diet was advanced slowly. She tolerated her clear liquid diet without any problems. Dr. Clemens felt she could be discharged today with elective surgical intervention to be done on 08/26/19. She will be discharged home today in stable condition. LABORATORY: WBCs on admission were 13,400 and normalized to 6,900. Her hemoglobin and hematocrit were stable at 13.3 and 38.9. Electrolytes were basically within normal limits as per the history of present illness. She had an unremarkable urinalysis. Her abdominal CT was as per the history of present illness. Her last abdominal x-ray shows nonobstructive intestinal gas pattern. DISCHARGE PLAN: The patient will be discharged home in stable condition. She is to continue on a full liquid diet until Monday night when she is to be NPO at midnight. She is also to stop her Eliquis Monday night. She is to report to surgery on Monday morning, 08/26/19 at 7:30 in the morning for elective surgical intervention. She is to return to the hospital for any problems or complications. DISCHARGE MEDICATIONS: 1. Coenzyme Q10. 2. Carvedilol. 3. Vitamin D. 4. Progesterone. 5. Fluticasone. 6. Imitrex. 7. Potassium chloride. 8. Lasix. 9. Valsartan. 10. Eliquis. 11. Magnesium oxide. 12. Probiotics. 13. Advair. 14. Albuterol nebulizers. 15. Requip. 16. Multivitamins. 17. Calcium with vitamin D. 18. Polyethylene glycol. 19. Zocor. #[id number] [facility]
== END 2019-08-20 13:15 | disposition home or self-care (01) | DRG 389 ==
LOC: ER 02:59 → OBSVTOIN 07:03 → MS 07:03
PROVIDERS: ADMIT Nurse Practitioner Family; ATTEND Nurse Practitioner Acute Care
PROC: BW211ZZ Computerized Tomography (CT Scan) of Abdomen and Pelvis using Low Osmolar Contrast (ICD-10-PCS; principal; 2019-08-17)
DX: K56.50 Intestinal adhesions [bands], unspecified as to partial versus complete obstruction (principal); I48.20 Chronic atrial fibrillation, unspecified; C85.99 Non-Hodgkin lymphoma, unspecified, extranodal and solid organ sites; I10 Essential (primary) hypertension; Z79.01 Long term (current) use of anticoagulants; Z79.51 Long term (current) use of inhaled steroids; Z79.899 Other long term (current) drug therapy; Z90.710 Acquired absence of both cervix and uterus

== ENCOUNTER 2019-08-26 05:39 | Inpatient (IN) | payer MEDICARE, OTHER ==
[2019-08-26] MEDS ORDERED: LACTATED RINGERS 1,000 ML ONE (06:58)
[2019-08-26] MEDS ORDERED: ceFAZolin SODIUM 1 GM VIAL ONE (06:58)
[2019-08-26] MEDS ORDERED: SODIUM CHL 0.9% 100ML MINI-BAG 100 ML IVPB ONE (06:58)
[2019-08-26] MEDS ORDERED: LACTATED RINGERS 1,000 ML IVS ONE ×2 (07:35→10:26)
[2019-08-26] MEDS ORDERED: MIDAZOLAM INJ 2 MG/2 ML VIAL ONE (07:36)
[2019-08-26] MEDS ORDERED: HYDROmorphone HCL INJ 2 MG/ML VIAL ONE ×2 (07:50→10:40)
[2019-08-26] MEDS ORDERED: ACETAMINOPHEN IV 1000MG 100 ML ONE (07:50)
[2019-08-26] MEDS ORDERED: KETAMINE HCL 100 MG/ML VIAL ONE (07:50)
[2019-08-26] MEDS ORDERED: ROCURONIUM BROMIDE 10 MG/ML VIAL ONE (07:51)
[2019-08-26] MEDS ORDERED: hydrALAZINE HCl 20 MG/ML VIAL ONE (08:58)
[2019-08-26] MEDS ORDERED: SUGAMMADEX SODIUM 200 MG/2 ML VIAL IV ONE (08:59)
[2019-08-26] MEDS ORDERED: ONDANSETRON INJ 4 MG/2 ML VIAL IV PRN (10:23)
[2019-08-26] MEDS ORDERED: HYDROmorphone HCL INJ 2 MG/ML VIAL IV ONE ×5 (10:44→11:25)
[2019-08-26] MEDS ORDERED: MEPERIDINE HCL 50 MG/ML VIAL ONE (10:55)
[2019-08-26] MEDS ORDERED: MEPERIDINE HCL 50 MG/ML VIAL IV ONE (10:58)
--- NOTE | 2019-08-26 11:07 | OP ---
DATE OF PROCEDURE: 08/26/19 PREOPERATIVE DIAGNOSIS: 1. Partial small bowel obstruction with three previous admissions. POSTOPERATIVE DIAGNOSIS: 1. 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 PROCEDURE: 1. Exploratory laparotomy. 2. Lysis of adhesions. 3. Small bowel resection with primary anastomosis. SURGEON: Aristeo Clemens MD DISTRICT SALES REPRESENTATIVE: Jf Haywood MD ANESTHESIA: General INDICATION: The patient is a 74-year-old female who has had three previous admissions for a partial small bowel obstruction, which has resolved with conservative treatment without surgical methods. At the last admission, she was seen by me and we discussed the fact that she needed the operation even though her symptoms resolved with bowel rest. There was the same area seen on all three CT scans for all three admissions. She elected to go home on clear liquids to get through the and is brought to the Surgical Suite today for an elective laparotomy. FINDINGS: There was a loop of bowel stuck in the pelvis with an adhesion band covering two areas. These areas appeared to be strictured and this is also true once it was opened. No other pathology was identified other than the adhesions. The gallbladder had no stones. There were no other areas in the small bowel which had any adenopathy or other masses. The colon was without masses. The right lobe of the liver was identified to not have any masses. PROCEDURE: After adequate general endotracheal anesthesia was obtained, the patient was placed in supine position. Sung catheter was placed and she was prepped and draped in the usual sterile manner. Surgical time-out was taken. At this time, a midline incision was made from the umbilicus to the pubis, first with a sharp knife. Dissection was carried down through skin and subcutaneous tissue to the midline fascia using blunt dissection and electrocautery. The fascia was scored and then transected for the full length of the incision. The peritoneum was then elevated and divided sharply. Then the peritoneum was divided and the posterior rectal sheath was divided superiorly and inferiorly for the length of the incision. At this point, the adhesions of the omentum to the anterior abdominal wall were taken down using electrocautery and blunt dissection. When this was done, the omentum was dissected out of the pelvis and then the pelvis was explored with several adhesions. The loop of bowel then came up with the areas of indentations from the previous strictures and a small amount of scar tissue. At this point, the rest of the bowel was run from the ligament of Treitz to the ileocecal valve and the only pathology identified was these areas. It did appear that these were strictures that did not normalize after removing them from the adhesions. At this point, we decided to do a resection. The proximal areas of resection with the strictures within this small loop was transected using the VONNIE. The mesentery was divided with electrocautery, clamps and ligatures of 3-0 Vicryl. When this was done, a [id number], functional end-to-end anastomosis was formed with the VONNIE stapler and the enterotomy was closed with a running Bakari stitch of 3-0 Monocryl and then Lembert sutures of 4-0 Prolene. When this was done, the mesentery was reapproximated with a running 3-0 Monocryl. The abdomen was then irrigated copiously with saline. The effluent was noted to be clear. The bowel was placed back in position. The omentum was brought back down overlying the bowel. A small rent was noted in the omentum and this was closed with a running 3-0 Monocryl suture. At this point, the fascia was closed with a looped #1 PDS suture. When this was tightened and tied, the subcutaneous tissues were irrigated with saline. Genevieve's fascia was reapproximated loosely with 3-0 Vicryl sutures. The skin edges were approximated with a skin stapler. A sterile dressing was applied. An abdominal binder was applied. The Sung catheter was removed. The patient was taken to the Recovery Room in good and stable condition. Estimated blood loss wax approximately 50 mL. All sponge, needle and instrument counts were correct. [facility][id number] [facility]
[2019-08-26] MEDS ORDERED: GLYCOPYRROLATE 0.2 MG/ML VIAL IV ONE (12:00)
[2019-08-26] MEDS ORDERED: DEXAMETHASONE INJ 10 MG/ML VIAL IV ONE (12:00)
[2019-08-26] MEDS ORDERED: raNITIdine HCL INJ 25 MG/ML VIAL IV ONE (12:00)
[2019-08-26] MEDS ORDERED: LIDOCAINE 1% 10 ML VIAL INJ ONE (12:00)
[2019-08-26] MEDS ORDERED: SODIUM CHLORIDE 0.9% 50 ML VIAL INJ ONE (12:00)
[2019-08-26] MEDS ORDERED: PROPOFOL 200 MG/20 ML VIAL IV ONE (12:00)
[2019-08-26] MEDS ORDERED: KETOROLAC TROMETHAMINE INJ 30 MG/ML VIAL IV ONE (12:00)
--- NOTE | 2019-08-26 14:40 | CONS ---
SUPERVISING PHYSICIAN: Jf Armstrong MD CHIEF COMPLAINT: Medical management post exploratory laparotomy. HISTORY OF PRESENT ILLNESS: Ms. Mckeon is a 74-year-old female patient that recently been in the hospital on 08/17/19 for small bowel obstruction. She had been in the hospital multiple times within the last several months for similar symptoms. She was treated medically and had good resolution of her symptoms, but given her high risk factors, requested surgical consultation with Dr. Clemens. She was admitted today on 08/26/19 for exploratory laparotomy after having multiple efforts at conservative treatment measures. She had three admission previously related to small bowel obstruction noted to be in the same area on CT scans. She had no intraoperative complications and was seen in the immediate postoperative state for consultation for postoperative medical management status post exploratory laparotomy. PAST MEDICAL HISTORY: 1. Multiple small bowel obstructions requiring hospitalizations. 2. Chronic hypertension. 3. Lymphoma in remission. 4. Chronic atrial fibrillation on Eliquis. 5. Chronic migraines. PAST SURGICAL HISTORY: 1. Hysterectomy. 2. Status post exploratory laparotomy. MEDICATIONS: Awaiting updated list of medications in the electronic medical record. ALLERGIES: NO KNOWN DRUG ALLERGIES. FAMILY HISTORY: Cardiac disease in both parents with no history of cancers including ovarian and colon. SOCIAL HISTORY: The patient denies any alcohol or illicit drug use, denies tobacco use. She is retired and and lives in [place], [place]. REVIEW OF SYSTEMS: CONSTITUTIONAL: Negative for any fevers, chills or general malaise. HEENT: Negative for sore throats, nasal congestion. She does have a history of chronic migraines. RESPIRATORY: Negative for coughing, wheezing, shortness of breath. GASTROINTESTINAL: As noted in history of present illness. GENITOURINARY: Negative for dysuria, hematuria, polyuria. SKIN: Negative for unexplained lesions, rashes or moles. MUSCULOSKELETAL: Negative for muscle pain, back pain or joint swelling. NEUROLOGIC: Negative for seizures, ataxia or other deficits. PHYSICAL EXAMINATION: VITAL SIGNS: Temperature 97.4. Pulse 54. Blood pressure 124/58. Respirations 12. Saturation 98% on 2 liters nasal cannula. GENERAL: The patient is resting comfortably postoperatively and appears to be in no acute distress. She is alert, visiting with family. HEENT: Tympanic membranes clear bilaterally. Oropharynx is pink, moist without any lesions. NECK: Supple, nontender with full range of motion. No jugular venous distention noted. RESPIRATORY: Lungs clear to auscultation bilaterally without any rhonchi, wheezes or rales. CARDIOVASCULAR: Regular rate and rhythm without any appreciable murmurs, gallops, or rubs. ABDOMEN: Surgical dressing and binder in place in immediate postoperative condition. BACK: Without CVA tenderness. EXTREMITIES: There is no cyanosis, clubbing or edema. NEUROLOGIC: The patient is alert and oriented times three. Cranial nerves II- XII are grossly intact. LABORATORY: No laboratory available for review. RADIOLOGY: No additional radiographic studies available for review. ASSESSMENT: 1. Immediate postoperative day zero for exploratory laparotomy with history of small bowel obstructions due to adhesions, having failed multiple episodes of medical conservative treatment measures. Surgery performed by Dr. Clemens. 2. Chronic atrial fibrillation on Eliquis. 3. Chronic hypertension. 4. Lymphoma in remission. 5. Chronic migraines. PLAN: We will follow the patient postoperatively as she progressed through her postoperative state. We will defer surgical management, pain management and fluids to Dr. Clemens. We will review home medications and update those as necessary. She will be started back on Eliquis as soon as cleared by Dr. Clemens. Until the patient can transition to outpatient management, we will continue to monitor and treat as needed. We will defer further surgical management to Dr. Clemens. #[id number] [facility]
[2019-08-26] MEDS ORDERED: ceFAZolin SODIUM 2 GRAMS PREMI 50 ML IVPB ONE ×2 (15:14→18:58)
[2019-08-26] MEDS: ceFAZolin SODIUM 2 GRAMS PREMI 2 GM in PREMIX BAG 1 BAG IVPB SCH ×2 (15:25→23:21)
[2019-08-26] MEDS: MORPHINE SULFATE INJ 10 MG/ML VIAL IV PRN ×2 (17:54→23:21)
[2019-08-26] MEDS ORDERED: PANTOPRAZOLE SODIUM IV 40 MG VIAL ONE (18:59)
[2019-08-26] MEDS: LACTATED RINGERS 1,000 ML IVS PRN (19:04)
[2019-08-26] MEDS: ENOXAPARIN SODIUM 40 MG/0.4 ML SYG SUBCU SCH (20:39)
[2019-08-26] MEDS ORDERED: ALBUTEROL SULFATE 2.5 MG/3 ML VIAL NEB PRN (21:36)
[2019-08-27] MEDS: LACTATED RINGERS 1,000 ML IVS PRN ×3 (03:15→20:13)
[2019-08-27] MEDS: MORPHINE SULFATE INJ 10 MG/ML VIAL IV PRN ×5 (03:19→20:41)
[2019-08-27] MEDS: PANTOPRAZOLE SODIUM IV 40 MG VIAL IV SCH (06:27)
[2019-08-27] MEDS ORDERED: ceFAZolin SODIUM 2 GRAMS PREMI 50 ML IVPB ONE (06:28)
[2019-08-27] MEDS: ceFAZolin SODIUM 2 GRAMS PREMI 2 GM in PREMIX BAG 1 BAG IVPB SCH (06:29)
[2019-08-27] MEDS ORDERED: IV SET AND CAP CHANGE INJ INJ SCH (10:00)
[2019-08-27] MEDS ORDERED: SODIUM CHLORIDE 0.9% (FLUSH) 10 ML SYG IV PRN (10:00)
[2019-08-27] MEDS: CARVEDILOL 3.125 MG TAB PO SCH ×2 (10:12→20:51)
[2019-08-27] MEDS: VALSARTAN 80 MG TAB PO SCH (10:12)
--- NOTE | 2019-08-27 13:48 | PN ---
SUPERVISING PHYSICIAN: Jf Armstrong MD DATE: 08/27/19 SUBJECTIVE: The patient states she feels fairly well today. She has been walking in the [place]. She has belched a couple of times and then passed three very small flatus she says. No significant nausea at this time. OBJECTIVE: VITAL SIGNS: Blood pressure 170/78. Heart rate 82. Respiratory rate 20. Temperature 98.7. Oxygen saturation 97%. GENERAL: Ms. Mckeon is a 74-year-old female in no active distress. NEUROLOGIC: Alert and oriented. LUNGS: Clear to auscultation bilaterally. CARDIOVASCULAR: Regular rate and rhythm. Normal S1, S2. ABDOMEN: Soft. Hypoactive bowel sounds. Dressing intact. EXTREMITIES: Lower extremities with no significant edema. LABORATORY: White count 21.6, left shift at 87%. Chemistry unremarkable. ASSESSMENT: 1. Exploratory laparotomy with lysis of adhesions and small bowel resection, postoperative day #1. 2. Atrial fibrillation on Eliquis therapy. 3. Hypertension. 4. Lymphoma in remission. 5. Chronic migraines. PLAN: Dr. Clemens is going to start clear liquid diet. I am going to resume her blood pressure medications as well as her Requip for restless leg at request of Dr. Clemens. I have spoken with him about re-starting the anticoagulation and once the diet is advanced once again, we can start the anticoagulation. We will continue to monitor and recheck CBC tomorrow. Recommended the patient continue to ambulate as she is doing very well with this. #[id number] [facility]
[2019-08-27] MEDS: ENOXAPARIN SODIUM 40 MG/0.4 ML SYG SUBCU SCH (20:12)
[2019-08-28] MEDS: LACTATED RINGERS 1,000 ML IVS PRN ×2 (04:38→14:39)
[2019-08-28] MEDS: MORPHINE SULFATE INJ 10 MG/ML VIAL IV PRN ×4 (04:51→22:25)
[2019-08-28] MEDS: PANTOPRAZOLE SODIUM IV 40 MG VIAL IV SCH (06:06)
[2019-08-28] MEDS: CARVEDILOL 3.125 MG TAB PO SCH ×2 (08:38→20:42)
[2019-08-28] MEDS: VALSARTAN 80 MG TAB PO SCH (08:38)
[2019-08-28] MEDS: MAGNESIUM HYDROXIDE 30 ML UD PO SCH (12:23)
[2019-08-28] MEDS: APIXABAN 5 MG TAB PO SCH ×2 (12:23→20:42)
--- NOTE | 2019-08-28 20:40 | PN ---
DATE: 08/28/19 SUPERVISING PHYSICIAN: Jf Armstrong M.D. SUBJECTIVE: The patient denies any nausea. Discomfort is controlled. Still passing a very small amount of flatus but still belching as well. Walking the halls frequently. OBJECTIVE: VITAL SIGNS: Blood pressure 136/75, heart rate 89, respiratory rate 16, temperature 98.4, oxygen saturation 99%. GENERAL: Ms. Mckeon is a 74 year-old female in no active distress currently. NEUROLOGIC: The patient is alert and oriented. LUNGS: Clear to auscultation bilaterally. CARDIOVASCULAR: The patient has a regular rate and rhythm. Normal S1 and S2. ABDOMEN: With a binder in place. Hypoactive bowel sounds. EXTREMITIES: Lower extremities with no edema. LABORATORY: White count 11.0 which is an improvement from yesterday. Hemoglobin is stable at 12.2, platelet count 280. ASSESSMENT: 1. Exploratory laparotomy with lysis of adhesions and small bowel resection, postoperative day #2. 2. Atrial fibrillation on chronic Eliquis therapy. 3. Hypertension. 4. Lymphoma in remission. 5. Chronic migraines. PLAN: Advancing diet to full liquid per Dr. Clemens. Also giving her Milk of Magnesia at the request of Dr. Clemens. I will resume her anticoagulation today. Will continue to monitor her and advance diet as tolerated. [id number] [facility]
[2019-08-28] MEDS: FLUTICASONE/SALMETEROL 100/50 1 PUFF INH INH SCH (21:00)
[2019-08-29] MEDS: PANTOPRAZOLE SODIUM IV 40 MG VIAL IV SCH (05:40)
[2019-08-29] MEDS ORDERED: SIMVASTATIN 20 MG TAB PO SCH (09:00)
[2019-08-29] MEDS: FLUTICASONE/SALMETEROL 100/50 1 PUFF INH INH SCH (09:00)
[2019-08-29] MEDS: APIXABAN 5 MG TAB PO SCH (09:06)
[2019-08-29] MEDS: CARVEDILOL 3.125 MG TAB PO SCH (09:06)
[2019-08-29] MEDS: MAGNESIUM HYDROXIDE 30 ML UD PO SCH (09:06)
[2019-08-29] MEDS: VALSARTAN 80 MG TAB PO SCH (09:06)
[2019-08-29] MEDS ORDERED: HYDROcodone 5MG/APAP 325MG 1 EA TAB PO PRN (09:16)
--- NOTE | 2019-08-29 10:40 | DS ---
FINAL DIAGNOSIS: 1. Small bowel obstruction secondary to adhesions and stricture of the small bowel, pathology pending. SURGICAL PROCEDURE: 1. Exploratory laparotomy. 2. Lysis of adhesions. 3. Small bowel resection with [id number] functional end-to-end anastomosis. HISTORY OF PRESENT ILLNESS: From the admitting history and physical. LABORATORY: White blood cell count the day prior to discharge was 11,000 with 65% neutrophils. She had a hemoglobin of 12.2, platelet count 280,000. Pathology report is pending. HOSPITAL COURSE: The patient was admitted to the Ambulatory Unit into surgery where she underwent the previously noted procedure. A Sung catheter was placed during surgery and removed in the Operating Room. She was continued on IV therapy and given ice chips. The next morning, she was tolerating that and had excellent bowel sounds. She was belching, but she was started on clear liquids. She tolerated that overnight. She was given a dose of Milk of Magnesia and advanced to full liquid diet. She had a large bowel movement and tolerated the full liquids without cramping, nausea or belching. She continued to pass flatus and was walking well. On the third postoperative morning, she is discharged home. CONDITION ON DISCHARGE: Excellent. DISPOSITION: The patient is to followup in my office in 12 days. She is discharged on a low-residue diet and told to push fluids. She was told she can ambulate, but do no lifting or exercise. She was told to wear her abdominal binder when doing any activity. She was told she can shower but not tub bath. She was told to call my office if she has any significant difficulty or question prior to her followup appointment. #[id number] [id number]
[2019-08-29 14:48] VITALS: BP 151/76; TEMP 98.6; O2SAT 99
== END 2019-08-29 12:05 | disposition home or self-care (01) | DRG 330 ==
LOC: AMB 05:39 → MS 12:28
PROVIDERS: ADMIT Surgery; ATTEND Surgery
PROC: 0DB80ZZ Excision of Small Intestine, Open Approach (ICD-10-PCS; 2019-08-26)
PROC: 0DN80ZZ Release Small Intestine, Open Approach (ICD-10-PCS; principal; 2019-08-26 08:11)
DX: K56.51 Intestinal adhesions [bands], with partial obstruction (principal); I48.20 Chronic atrial fibrillation, unspecified; C85.90 Non-Hodgkin lymphoma, unspecified, unspecified site; K56.699 Other intestinal obstruction unspecified as to partial versus complete obstruction; I10 Essential (primary) hypertension; G25.81 Restless legs syndrome; Z79.01 Long term (current) use of anticoagulants

== ENCOUNTER → 2020-03-05 | Outpatient (CLI) | payer MEDICARE, OTHER | LOC: GMAM 10:47 | PROVIDERS: ATTEND Family Medicine | DX: D50.8 Other iron deficiency anemias (principal); E04.1 Nontoxic single thyroid nodule ==

== ENCOUNTER → 2020-03-13 | Outpatient (CLI) | payer MEDICARE, OTHER ==
--- NOTE | 2020-03-13 14:18 | CT ---
EXAM DESCRIPTION: Abdomen/Pelvis w/Contrast CLINICAL HISTORY: 75 years Female, CYST OF PANCREAS COMPARISON: CT abdomen and pelvis dated 08/17/2019. TECHNIQUE: Contiguous 3 mm axial images were obtained from the lung bases to the level of the proximal femora after the administration of intravenous and oral contrast. Sagittal and coronal reconstructions were reviewed. FINDINGS: THORAX: The imaged lower thorax demonstrates no gross abnormality. LIVER: Diffuse fatty infiltration. No intrahepatic or ductal dilatation. GALLBLADDER: Grossly unremarkable. PANCREAS: 7 mm cystic lesion is noted in the head of the pancreas. This could represent a sidebranch IPMN versus simple epithelial cyst. This has been stable compared to prior examination dated 08/17/2019. SPLEEN: Normal ADRENAL GLANDS: Normal with no nodules or masses. KIDNEYS: Both kidneys enhance symmetrically with no hydronephrosis or nephrolithiasis or perinephric fluid collections. No focal masses are identified. The visualized ureters appear grossly unremarkable. STOMACH: Not well distended limiting detailed evaluation. SMALL BOWEL: Mild dilatation and fecalization of few small bowel loops proximal to the anastomotic site is noted. Findings could represent slow transit. No evidence of bowel obstruction. LARGE BOWEL: Multiple diverticula are noted throughout the visualized colon, with no acute inflammation. The appendix is not definitively visualized. No evidence of free intraperitoneal air or fluid. RETROPERITONEUM: The abdominal aorta is nonaneurysmal with moderate to severe atherosclerosis. The inferior vena cava is normal in size and caliber. No abnormally enlarged retroperitoneal lymph nodes are identified. URINARY BLADDER:The urinary bladder is well-distended with no gross abnormality. Uterus and ovaries are surgically absent. ADDITIONAL FINDINGS: None. BONES: Mild degenerative changes are identified in the visualized bones.No evidence of osteophytic or osteoblastic lesions. IMPRESSION: 1. Stable 7 mm cystic lesion in the head of the pancreas compared to prior CT dated 08/17/2019. 2. Hepatic steatosis. 3.Mild dilatation and fecalization of few small bowel loops proximal to the anastomotic site is noted. Findings could represent slow transit. No evidence of bowel obstruction. 4. Colonic diverticulosis. This exam was performed according to our departmental dose-optimization program, which includes automated exposure control, adjustment of the mA and/or kV according to patient size and/or use of iterative reconstruction technique. Electronically signed by: Fidelia Ross MD 03/13/2020 2:16 PM CDT
== END ==
LOC: CT 08:00
PROVIDERS: ATTEND Family Medicine
DX: K86.2 Cyst of pancreas (principal); K76.0 Fatty (change of) liver, not elsewhere classified; K57.30 Diverticulosis of large intestine without perforation or abscess without bleeding; K63.9 Disease of intestine, unspecified

== ENCOUNTER 2020-03-25 08:50 | Outpatient (CLI) | payer MEDICARE, OTHER ==
[2020-03-25] MEDS: ACETAMINOPHEN 325 MG TAB PO SCH (09:16)
[2020-03-25] MEDS: FAMOTIDINE IV PREMIX 20 MG in PREMIX BAG 1 BAG IVPB SCH (09:16)
[2020-03-25] MEDS: IRON DEXTRAN 500 MG in SODIUM CHLORIDE 0.9% 500ML 500 ML IVPB SCH (09:58)
[2020-04-01 09:12] VITALS: BP 143/72; TEMP 98.4; O2SAT 96
[2020-04-01] MEDS: ACETAMINOPHEN 325 MG TAB PO SCH (09:16)
[2020-04-01] MEDS: FAMOTIDINE IV PREMIX 20 MG in PREMIX BAG 1 BAG IVPB SCH (09:17)
[2020-04-01] MEDS: IRON DEXTRAN 500 MG in SODIUM CHLORIDE 0.9% 500ML 500 ML IVPB SCH (10:15)
== END 2020-04-01 15:00 | disposition home or self-care (01) ==
LOC: INFRM 08:50
PROVIDERS: ATTEND Internal Medicine Hematology & Oncology
DX: D50.8 Other iron deficiency anemias (principal)
CPT/HCPCS: 96365; 96366; 96367; J1750; J3490; J7040

== ENCOUNTER → 2020-05-11 | Outpatient (CLI) | payer MEDICARE, OTHER ==
--- NOTE | 2020-05-11 13:49 | RAD ---
EXAM DESCRIPTION: Pelvis, single view CLINICAL HISTORY: PAIN FINDINGS/ IMPRESSION: No advanced arthrosis or focal osteochondral lesion of the hips. Small inferior medial femoral head and acetabular osteophyte on the right. Enthesophytes the greater trochanter tendon attachments. No fracture of the proximal femora or pelvis. Mild osteoarthritis bilateral sacroiliac joints Electronically signed by: Aurelio Hidalgo MD 05/11/2020 1:47 PM CDT
--- NOTE | 2020-05-11 13:50 | RAD ---
EXAM DESCRIPTION: Right knee, 4 radiographs CLINICAL HISTORY: Knee pain FINDINGS/ IMPRESSION: Tricompartmental osteoarthritis. Mild femorotibial joint space narrowing. Tricompartmental marginal osteophytes. No fracture or acute osteochondral lesion identified. Small suprapatellar joint effusion Electronically signed by: Aurelio Hidalgo MD 05/11/2020 1:48 PM CDT
== END ==
LOC: RAD 08:35
PROVIDERS: ATTEND Orthopaedic Surgery
DX: M47.898 Other spondylosis, sacral and sacrococcygeal region (principal); M25.761 Osteophyte, right knee; M17.11 Unilateral primary osteoarthritis, right knee; M76.9 Unspecified enthesopathy, lower limb, excluding foot

== ENCOUNTER → 2020-05-20 | Outpatient (CLI) | payer MEDICARE, OTHER | END | disposition home or self-care (01) | LOC: LAB.O 10:59 | PROVIDERS: ATTEND Orthopaedic Surgery | DX: Z01.818 Encounter for other preprocedural examination (principal) ==

== ENCOUNTER 2020-06-17 05:20 | Inpatient (IN) | payer MEDICARE, OTHER ==
[2020-06-17] MEDS ORDERED: SODIUM CHL 0.9% 100ML MINI-BAG 100 ML IVPB ONE (05:48)
[2020-06-17] MEDS ORDERED: SODIUM CHLORIDE 0.9% 100ML 100 ML IVPB ONE (05:48)
[2020-06-17] MEDS ORDERED: SODIUM CHLORIDE 0.9% 250ML 250 ML ONE (05:48)
[2020-06-17] MEDS ORDERED: ceFAZolin SODIUM 1 GM VIAL ONE ×2 (05:49→06:29)
[2020-06-17] MEDS ORDERED: LACTATED RINGERS 1,000 ML ONE (05:49)
[2020-06-17] MEDS ORDERED: VANCOMYCIN HCL INJ 1,000 MG VIAL IVPB ONE ×3 (05:49→06:50)
[2020-06-17] MEDS ORDERED: TRANEXAMIC ACID 1,000 MG/10 ML VIAL ONE (05:49)
[2020-06-17] MEDS ORDERED: SODIUM CHLORIDE 0.9% (FLUSH) 10 ML SYG ONE (05:49)
[2020-06-17] MEDS ORDERED: MIDAZOLAM INJ 5 MG/5 ML VIAL ONE (06:12)
[2020-06-17] MEDS ORDERED: FAMOTIDINE 10 MG/ML ML IV ONE (06:12)
[2020-06-17] MEDS ORDERED: HYDROmorphone HCL INJ 2 MG/ML VIAL ONE (06:12)
[2020-06-17] MEDS ORDERED: BUPIVACAINE 0.5% 30 ML VIAL INJ ONE ×2 (06:29→06:50)
[2020-06-17] MEDS ORDERED: BUPIVACAINE LIPOSOME 13.3 MG/ML VIAL INJ ONE ×2 (06:29→06:50)
[2020-06-17] MEDS ORDERED: ceFAZolin SODIUM 1 GM VIAL IRRIG ONE (06:50)
[2020-06-17] MEDS ORDERED: DEXAMETHASONE INJ 10 MG/ML VIAL ONE (07:00)
[2020-06-17] MEDS ORDERED: SODIUM CHLORIDE 0.9% 50 ML VIAL ONE (07:00)
[2020-06-17] MEDS ORDERED: diphenhydrAMINE HCL 50 MG/ML VIAL ONE (07:00)
[2020-06-17] MEDS ORDERED: MAGNESIUM SULFATE INJ 1 GM/2 ML VIAL ONE (07:00)
[2020-06-17] MEDS ORDERED: PROPOFOL 200 MG/20 ML VIAL IV ONE (07:00)
[2020-06-17] MEDS ORDERED: EPINEPHrine HCL AMP 1 MG/ML AMP ONE (07:00)
[2020-06-17] MEDS ORDERED: ELECTROLYTE-A 1,000 ML IVS ONE (09:13)
[2020-06-17] MEDS ORDERED: ALUMINUM & MAGNESIUM HYDROXIDE 30 ML UD PO PRN (09:29)
[2020-06-17] MEDS ORDERED: MORPHINE SULFATE INJ 10 MG/ML VIAL IV PRN (09:29)
[2020-06-17] MEDS ORDERED: TEMAZEPAM 15 MG CAP PO PRN (09:29)
[2020-06-17] MEDS ORDERED: PROMETHAZINE HCL INJ 25 MG in SODIUM CHLORIDE 0.9% 50ML 50 ML IVPB PRN (09:29)
[2020-06-17] MEDS ORDERED: BISACODYL SUPPOSITORY 10 MG PR PRN (09:29)
[2020-06-17] MEDS ORDERED: PROMETHAZINE HCL INJ 12.5 MG in SODIUM CHLORIDE 0.9% 50ML 50 ML IVPB PRN (09:29)
[2020-06-17] MEDS ORDERED: MAGNESIUM HYDROXIDE 30 ML UD PO PRN (09:29)
[2020-06-17] MEDS ORDERED: traMADol HCL 50 MG TAB PO PRN (09:29)
[2020-06-17] MEDS ORDERED: ACETAMINOPHEN 500 MG TAB PO PRN (09:29)
[2020-06-17] MEDS ORDERED: BENZOCAINE-MENTH LOZ (CEPACOL) 1 EA LOZ MT PRN (09:29)
[2020-06-17] MEDS ORDERED: MORPHINE SULFATE INJ 10 MG/ML VIAL IM PRN (09:29)
[2020-06-17] MEDS ORDERED: SODIUM CHLORIDE 0.9% (FLUSH) 10 ML SYG IV PRN (09:29)
[2020-06-17] MEDS ORDERED: TRANEXAMIC ACID INJ 1,000 MG in SODIUM CHLORIDE 0.9% 100ML 100 ML IVPB ONE (09:29)
[2020-06-17] MEDS ORDERED: NALOXONE HCL INJ 0.4 MG/ML VIAL IV PRN (09:29)
[2020-06-17] MEDS ORDERED: DEX 5% W/NACL 0.45% 1000ML 1,000 ML IVS PRN (09:29)
[2020-06-17] MEDS ORDERED: ACETAMINOPHEN 325 MG TAB PO PRN (09:29)
[2020-06-17] MEDS ORDERED: ZOLPIDEM TARTRATE 5 MG TAB PO PRN (09:29)
[2020-06-17] MEDS ORDERED: ONDANSETRON INJ 4 MG/2 ML VIAL IV PRN (09:29)
[2020-06-17] MEDS ORDERED: IV SET AND CAP CHANGE INJ INJ SCH (09:30)
[2020-06-17] MEDS ORDERED: MORPHINE PCA 1 MG/ML 100 ML BAG IVPB SCH (09:30)
[2020-06-17] MEDS ORDERED: hydrOXYzine HCl 10 MG TAB ONE (09:40)
[2020-06-17] MEDS ORDERED: hydrOXYzine HCl 25 MG TAB ONE (09:43)
[2020-06-17] MEDS ORDERED: hydrOXYzine HCl 25 MG TAB PO ONE (09:46)
[2020-06-17] MEDS ORDERED: CADD ADMIN SET 1 EA PKG INJ ONE (09:47)
[2020-06-17] MEDS ORDERED: diphenhydrAMINE HCL 50 MG/ML VIAL IV PRN (10:30)
[2020-06-17] MEDS ORDERED: ALBUTEROL SULFATE 2.5 MG/3 ML VIAL NEB PRN (11:44)
[2020-06-17] MEDS ORDERED: FLUTICASONE PROP 0.05% NASAL 16 GM BTTL BNAS PRN (11:44)
--- NOTE | 2020-06-17 11:49 | PN ---
DATE: 06/17/20 POSTOPERATIVE CHECK SUBJECTIVE: Azra is doing well and resting comfortably. OBJECTIVE: Afebrile. Vital signs stable. Dressing is clean, dry and intact. ASSESSMENT: Status post total knee arthroplasty. PLAN: The plan at this point is for her to begin weightbearing as tolerated starting tomorrow. #[id number] [facility]
--- NOTE | 2020-06-17 12:01 | CONS ---
SUPERVISING PHYSICIAN: Koffi Cortes MD DATE OF CONSULTATION: 06/17/20 REASON FOR CONSULTATION: Medical management. HISTORY OF PRESENT ILLNESS: This is a 75-year-old female who has had ongoing right knee osteoarthritis for several years. She underwent some conservative management with no significant improvement and therefore was offered a right total knee arthroplasty. This was performed today with no intraoperative complications. She returned to the Medical/Surgical Unit with itching initially, so we got some Benadryl. She is now sleeping and awakens to voice, but goes right back to sleep. She is in no distress. She does not complain of any pain at the moment. PAST MEDICAL HISTORY: 1. Multiple small bowel obstructions. 2. Hypertension. 3. Lymphoma in remission. 4. Chronic atrial fibrillation on Eliquis. 5. Chronic migraines. PAST SURGICAL HISTORY: 1. Hysterectomy. 2. Exploratory laparotomy with lysis of adhesions. MEDICATIONS: Please see the med rec list once verified in the computer. ALLERGIES: NO KNOWN DRUG ALLERGIES. FAMILY HISTORY: Cardiovascular disease in both parents. SOCIAL HISTORY: The patient is a nondrinker, nonsmoker. No illicit drugs. She is . REVIEW OF SYSTEMS: Really no complaints at this time other than the itching. PHYSICAL EXAMINATION: VITAL SIGNS: Blood pressure 114/55, heart rate 68, respiratory rate 18, temperature 97.4, oxygen saturation 96%. GENERAL: Ms. Mckeon is a 75-year-old female in no active distress currently. NEUROLOGIC: The patient is drowsy from anesthesia and the Benadryl, but awakens and follows commands with no focal deficits. LUNGS: Clear to auscultation bilaterally. CARDIOVASCULAR: Regular rate and rhythm. Normal S1, S2. ABDOMEN: Soft. Positive bowel sounds. EXTREMITIES: Lower extremities with no edema. Pulses 2+. Capillary refill is less than 2 seconds. Right leg is wrapped in an Kapil with an ice pack in place. IMPRESSION: 1. Right knee osteoarthritis status post right total knee arthroplasty, postoperative day 0. 2. Hypertension. 3. History of atrial fibrillation on Eliquis. 4. History of chronic migraines. PLAN: The patient will be admitted to the Medical/Surgical Unit for postoperative pain control as well as physical therapy. The patient will be participating in physical therapy and we will continue to evaluate this on a daily basis for discharge planning. The patient is also getting anticoagulation starting with Lovenox 12 hours after the surgery. She does utilize Eliquis for anticoagulation for the atrial fibrillation, so I would resume this likely tomorrow or the next day. We will resume all her other home medications at this time as well. #[id number] [facility]
--- NOTE | 2020-06-17 13:25 | RAD ---
Procedure: XR KNEE 1-2 VIEWS RIGHT Exam Date: 06/17/2020 Ordering Provider: Jose Guadalupe Porter Clinical Indication: TKA Comparison: 05/11/2020 Findings/impression: Postsurgical changes of total right knee arthroplasty with good alignment and no evidence of hardware complication. Expected gas within the soft tissues about the knee and thigh. There is no fracture or dislocation. Electronically signed by: Gonzalo Sweeney MD 06/17/2020 1:23 PM CDT
[2020-06-17] MEDS: hydrOXYzine HCl 25 MG TAB PO PRN ×2 (15:16→21:45)
[2020-06-17] MEDS: ceFAZolin SODIUM 2 GM in SODIUM CHL 0.9% 50ML MIN-BAG+ 50 ML IVPB SCH (16:01)
[2020-06-17] MEDS: CELECOXIB 100 MG CAP PO SCH (17:29)
[2020-06-17] MEDS: VANCOMYCIN HCL INJ 1,000 MG in SODIUM CHLORIDE 0.9% 250ML 250 ML IVPB SCH (17:30)
[2020-06-17] MEDS ORDERED: FLUTICASONE/SALMETEROL 100/50 1 PUFF INH INH SCH (20:00)
[2020-06-17] MEDS ORDERED: NON-FORMULARY MEDICATION 1 EA MIS (Carvedilol [Coreg] 6.25 MG) PO SCH (21:00)
[2020-06-17] MEDS ORDERED: NIACIN 1000 MG PO SCH (21:00)
[2020-06-17] MEDS ORDERED: ENOXAPARIN SODIUM 30 MG/0.3 ML SYG SUBCU ONE (21:19)
[2020-06-17] MEDS: BIFIDOBACTERIUM INFANTIS 4 MG CAP PO SCH (21:40)
[2020-06-17] MEDS: CARVEDILOL 3.125 MG TAB PO SCH (21:40)
[2020-06-17] MEDS: DOCUSATE CALCIUM 240 MG CAP PO SCH (21:40)
[2020-06-17] MEDS: NIACIN 500 MG TAB PO SCH (21:40)
[2020-06-17] MEDS: ENOXAPARIN SODIUM 30 MG/0.3 ML SYG SUBCU SCH (22:45)
[2020-06-18] MEDS: ceFAZolin SODIUM 2 GM in SODIUM CHL 0.9% 50ML MIN-BAG+ 50 ML IVPB SCH ×2 (00:32→08:53)
[2020-06-18] MEDS: VANCOMYCIN HCL INJ 1,000 MG in SODIUM CHLORIDE 0.9% 250ML 250 ML IVPB SCH (06:15)
[2020-06-18] MEDS: MAGNESIUM OXIDE 400 MG TAB PO SCH (08:56)
[2020-06-18] MEDS: MULTIPLE VITAMINS W/ MINERALS 1 EA TAB PO SCH (08:56)
[2020-06-18] MEDS: NIACIN 500 MG TAB PO SCH ×2 (08:57→21:45)
[2020-06-18] MEDS: CALCIUM CARBONATE-VITAMIN D 500 MG TAB PO SCH (08:57)
[2020-06-18] MEDS: CELECOXIB 100 MG CAP PO SCH ×2 (08:57→16:34)
[2020-06-18] MEDS: BIFIDOBACTERIUM INFANTIS 4 MG CAP PO SCH ×2 (08:57→21:45)
[2020-06-18] MEDS: SIMVASTATIN 20 MG TAB PO SCH (08:57)
[2020-06-18] MEDS: CARVEDILOL 3.125 MG TAB PO SCH ×2 (08:57→21:45)
[2020-06-18] MEDS: POLYETHYLENE GLYCOL 3350 17 GM PCKT PO SCH (08:58)
[2020-06-18] MEDS: CHOLECALCIFEROL 2,000 IU TAB PO SCH (08:58)
[2020-06-18] MEDS: VALSARTAN 80 MG TAB PO SCH (08:58)
[2020-06-18] MEDS ORDERED: VITAMIN D PO SCH (09:00)
[2020-06-18] MEDS ORDERED: MAGNESIUM OXIDE PO SCH (09:00)
[2020-06-18] MEDS ORDERED: CALCIUM MAGNESIUM PO SCH (09:00)
[2020-06-18] MEDS ORDERED: [UNRECOGNIZED DRUG - OTHER] PO SCH (09:00)
[2020-06-18] MEDS ORDERED: NON-FORMULARY MEDICATION 1 EA MIS (Valsartan [Valsartan] 160 MG) PO SCH (09:00)
[2020-06-18] MEDS: HYDROcodone 5MG/APAP 325MG 1 EA TAB PO PRN ×3 (10:27→23:25)
[2020-06-18] MEDS: PROGESTERONE MICRONIZED 200 MG PO SCH (10:38)
[2020-06-18] MEDS: COENZYME Q10 200 MG PO SCH (10:38)
[2020-06-18] MEDS: ENOXAPARIN SODIUM 30 MG/0.3 ML SYG SUBCU SCH (10:38)
--- NOTE | 2020-06-18 13:08 | RAD ---
EXAM DESCRIPTION: Fluoroscopy Up to 1Hr CLINICAL HISTORY: 75 years Female, RIGHT TKA COMPARISON: None. TECHNIQUE: C-arm was utilized for right total knee replacement with a fluoroscopic time of 1.4 seconds and dose of 0.11 mGy. A single image is submitted for review. FINDINGS: Satisfactory right total knee replacement with metallic femoral and tibial components applied to the underlying bony matrix noted. No periprosthetic fracture on the single image submitted noted. IMPRESSION: Right total knee replacement. Electronically signed by: Aurelio Donovan MD 06/18/2020 1:06 PM CDT
--- NOTE | 2020-06-18 13:45 | PN ---
SUPERVISING PHYSICIAN: Koffi Cortes MD DATE: 06/18/20 SUBJECTIVE: The patient is sitting in the bedside chair. She just finished with physical therapy. She reports her pain is well controlled. She has had no complaints. OBJECTIVE: VITAL SIGNS: Temperature 98.3, pulse 131/60, respirations 18, saturation 99% on room air. GENERAL: The patient is resting comfortably. She does not appear to be in any distress. She is alert. CHEST: Lungs are clear to auscultation bilaterally. HEART: Regular rate and rhythm. ABDOMEN: Soft, nontender. Positive bowel sounds. EXTREMITIES: Right leg has an Kapil bandage in place. Distal pulses are strong. Capillary refill is brisk. NEUROLOGIC: Alert and oriented times three. LABORATORY: Postoperative hemoglobin 11.7, hematocrit 35.1. ASSESSMENT: 1. Right knee osteoarthritis status post right total knee arthroplasty, postoperative day 1. 2. Hypertension. 3. History of atrial fibrillation on Eliquis. 4. History of chronic migraines. PLAN: We will continue with current plan of care with physical therapy rehabilitation efforts. We will go ahead and start her Eliquis back tonight for anticoagulation for her atrial fibrillation as well as postoperative prophylaxis. The plan at this point is to discharge home to [facility]. We will continue to encourage deep breathing exercises and monitor as needed until we can transition her to outpatient management. #[id number] [facility]
[2020-06-18] MEDS: CYCLOBENZAPRINE HCL 10 MG TAB PO PRN ×2 (14:32→23:25)
[2020-06-18] MEDS: DOCUSATE CALCIUM 240 MG CAP PO SCH (21:45)
[2020-06-18] MEDS: APIXABAN 5 MG TAB PO SCH (21:45)
[2020-06-19] MEDS: HYDROcodone 5MG/APAP 325MG 1 EA TAB PO PRN ×2 (05:52→11:31)
[2020-06-19] MEDS: CELECOXIB 100 MG CAP PO SCH (07:50)
[2020-06-19] MEDS ORDERED: SODIUM CHLORIDE 0.9% (FLUSH) 10 ML SYG IV SCH (09:00)
[2020-06-19] MEDS: POLYETHYLENE GLYCOL 3350 17 GM PCKT PO SCH (09:01)
[2020-06-19] MEDS: MULTIPLE VITAMINS W/ MINERALS 1 EA TAB PO SCH (09:02)
[2020-06-19] MEDS: CHOLECALCIFEROL 2,000 IU TAB PO SCH (09:02)
[2020-06-19] MEDS: CYCLOBENZAPRINE HCL 10 MG TAB PO PRN (09:02)
[2020-06-19] MEDS: MAGNESIUM OXIDE 400 MG TAB PO SCH (09:02)
[2020-06-19] MEDS: BIFIDOBACTERIUM INFANTIS 4 MG CAP PO SCH (09:02)
[2020-06-19] MEDS: VALSARTAN 80 MG TAB PO SCH (09:02)
[2020-06-19] MEDS: APIXABAN 5 MG TAB PO SCH (09:03)
[2020-06-19] MEDS: SIMVASTATIN 20 MG TAB PO SCH (09:03)
[2020-06-19] MEDS: CARVEDILOL 3.125 MG TAB PO SCH (09:03)
[2020-06-19] MEDS: CALCIUM CARBONATE-VITAMIN D 500 MG TAB PO SCH (09:03)
[2020-06-19] MEDS: COENZYME Q10 200 MG PO SCH (09:03)
[2020-06-19] MEDS: NIACIN 500 MG TAB PO SCH (09:03)
[2020-06-19] MEDS: PROGESTERONE MICRONIZED 200 MG PO SCH (09:04)
--- NOTE | 2020-06-19 09:04 | OP ---
DATE OF PROCEDURE: 06/17/20 PREOPERATIVE DIAGNOSIS: 1. Osteoarthritis of the knee. POSTOPERATIVE DIAGNOSIS: 1. Osteoarthritis of the knee. PROCEDURE: 1. Right total knee arthroplasty. SURGEON: Jose Guadalupe Porter MD. FOOTWEAR FACTORY WORKER: Jonathan Blair CST, SA-C. ANESTHESIA: General anesthesia. COMPLICATIONS: None. FINDINGS: Severe arthritis of the knee. INDICATION: Ms. Mckeon has a history of bilateral knee pain and she has undergone total knee arthroplasty on the left. She has requested right total knee arthroplasty secondary to failure of conservative measures. After discussing the risks, benefits and alternatives to that, the patient has given informed consent for total knee arthroplasty. PROCEDURE: The patient was brought to the Operating Room and placed in supine position. General anesthesia was induced and the patient's leg was sterilely prepped and draped. Following prepping and draping, the distal femur was exposed and using an intramedullary guide, the distal femoral cut was made. The appropriate sized cutting block was measured, pinned into place, and the anterior, posterior, and chamfer cuts were made. The ACL was transected and the tibia was subluxed. Both the medial and lateral menisci were removed. An intramedullary guide was used to make the proximal tibial cut. The appropriate sized base plate was placed and a trial polyethylene was placed. The trial femur was placed, the knee was reduced, and the knee was taken through a range of motion. The knee was stable in anterior, posterior, varus and valgus stress. The patella tracked anatomically without evidence of subluxation or dislocation. After trialing, the trial components were removed and the bony surfaces were thoroughly irrigated with saline. Following irrigation, the surfaces were dried and the final components were cemented into place. The excess cement was removed and the remaining cement was allowed to cure. The knee was again taken through a range of motion to confirm stability. The wound was then irrigated with saline and closure was performed using PDS to approximate the arthrotomy followed by closure of the subcutaneous tissues with a combination of running and interrupted Monocryl sutures. Sterile dressing was placed. The patient was awoken from anesthesia and taken to Recovery. COMPONENTS: Jay Triathlon knee, size 2 femur, size 2 tibia, 9 mm insert. POSTOPERATIVE PLAN: The patient will be weight-bearing as tolerated on postoperative day 1. [facility][id number] [facility]
[2020-06-19] MEDS ORDERED: diphenhydrAMINE HCL 25 MG CAP PO PRN (12:24)
[2020-06-19] MEDS ORDERED: INFLUENZA VIRUS VACC (ADULT) 0.5 ML SYG IM ONE (12:25)
[2020-06-19] MEDS ORDERED: ASPIRIN TABLET 325 MG TAB PO ONE (12:44)
[2020-06-19 13:09] VITALS: BP 158/71; TEMP 99; O2SAT 98
[2020-06-20] MEDS ORDERED: BISACODYL SUPPOSITORY 10 MG PR ONE (21:00)
[2020-06-20] MEDS ORDERED: MAGNESIUM HYDROXIDE 30 ML UD PO ONE (21:00)
--- NOTE | 2020-06-22 09:23 | DS ---
SUPERVISING PHYSICIAN: Koffi Cortes MD ADMISSION DIAGNOSIS: 1. Right knee osteoarthritis status post right total knee arthroplasty, postoperative day 0. 2. Hypertension. 3. History of atrial fibrillation on Eliquis. 4. History of chronic migraines. DISCHARGE DIAGNOSIS: 1. Right knee osteoarthritis status post right total knee arthroplasty, postoperative day 2. 2. Hypertension. 3. History of atrial fibrillation on Eliquis. 4. History of chronic migraines. REASON FOR HOSPITALIZATION: This is a 75-year-old female who has had ongoing right knee osteoarthritis for several years. She underwent some conservative management with no significant improvement and therefore was offered a right total knee arthroplasty. This was performed today with no intraoperative complications. She returned to the Medical/Surgical Unit with itching initially, so we got some Benadryl. She is now sleeping and awakens to voice, but goes right back to sleep. She is in no distress. She does not complain of any pain at the moment. LABORATORY: Postoperative hemoglobin 11.7, hematocrit 35.1. PROCEDURES: Right total knee arthroplasty performed by Dr. Jose Guadalupe Porter, orthopedic surgeon. Please see his operative report for details. IMAGING STUDIES: Please see preoperative radiology studies for details. HOSPITAL COURSE: Ms. Mckeon was admitted for an elective right total knee arthroplasty on 06/17/20. She had no intraoperative or postoperative complications. She did well with rehabilitation and physical therapy efforts. It was felt on the day of discharge on 06/19/20 that she had progressed well enough to continue outpatient management. Therefore, she was discharged to continue through the [facility] for rehab and physical therapy. DISCHARGE PHYSICAL ASSESSMENT: VITAL SIGNS: Temperature 99, pulse 75, blood pressure 158/71, respiratory rate 16, saturation 98% on room air. GENERAL: The patient is resting comfortably, does not appear to be in any distress. She is alert. CHEST: Clear to auscultation. HEART: Regular rate and rhythm. ABDOMEN: Soft, nontender. Positive bowel sounds. EXTREMITIES: Right knee had an island dressing in place that was clean and dry with no signs of drainage or redness. Distal pulses strong. Capillary refill brisk. NEUROLOGIC: Alert and oriented x3. PLAN: Ms. Mckeon was discharged to continue with physical therapy through the [facility] as an outpatient. She was already on Eliquis. Therefore, she will not be continued on any postoperative anticoagulation other than prior hospitalization. She is to followup with Dr. Porter as scheduled. No new medications were prescribed on discharge other than pain management by Dr. Porter with [place]. Diet on discharge as regular diet as tolerated. Activity per physical therapy, wound management per physical therapy and Dr. Porter's postoperative note. The patient may shower, but no tub baths. She is to utilize a walker at all times. CONDITION ON DISCHARGE: Stable and improved. DISPOSITION: The patient is discharged to outpatient rehabilitation efforts. #[id number] [facility]
== END 2020-06-19 14:25 | disposition home or self-care (01) | DRG 470 ==
LOC: AMB 05:20 → MS 10:15
PROVIDERS: ADMIT Orthopaedic Surgery; ATTEND Nurse Practitioner Family
PROC: 0SRC0J9 Replacement of Right Knee Joint with Synthetic Substitute, Cemented, Open Approach (ICD-10-PCS; principal; 2020-06-17 07:00)
DX: M17.11 Unilateral primary osteoarthritis, right knee (principal); I48.20 Chronic atrial fibrillation, unspecified; I10 Essential (primary) hypertension; Z79.01 Long term (current) use of anticoagulants; G89.18 Other acute postprocedural pain; Z79.51 Long term (current) use of inhaled steroids; Z79.899 Other long term (current) drug therapy

== ENCOUNTER → 2020-10-08 | Outpatient (CLI) | payer MEDICARE, OTHER | LOC: GMAM 14:38 | PROVIDERS: ATTEND Family Medicine | DX: I10 Essential (primary) hypertension (principal); E78.2 Mixed hyperlipidemia ==